=== PATIENT | female | born 1960 | race Caucasian/White ===

== ENCOUNTER 2022-09-26 10:08 | Inpatient (IN) | payer OTHER, MEDICAID, SELFPAY ==
[2022-09-26] VITALS (18 sets, daily range): BP systolic 124–171; BP diastolic 39–97; PULSE 64–95; RESP 13–28; TEMP 36.2–36.9; O2SAT 95–100; BMI 26.6
--- NOTE | 2022-09-26 10:11 | DI.CT.S_ITS ---
PROCEDURE: CT ANGIO HEAD AND NECK INDICATIONS: L side weakness TECHNIQUE: After the administration of intravenous contrast, 1 mm thick sections acquired from the aortic arch through the [place] of [place]. Post-contrast 4.5 mm thick sections then re-acquired from the foramen magnum to the vertex. 3-dimensional npiboja-uiwbijbjx-zsprkcknuv (MIP) and/or volume rendering reformats were acquired of the central intracranial vasculature and neck separately. For radiation dose reduction, the following was used: automated exposure control, adjustment of mA and/or kV according to patient size. COMPARISON: [facility], CT, CT HEAD/BRAIN WO CON, 09/26/2022, 11:29.. FINDINGS: Image quality: Excellent. BRAIN: CSF spaces: Ventricles are normal in size and shape. Basal cisterns are patent. No extra-axial fluid collections. Brain: No midline shift. No intracranial bleeds or masses. Messer-white matter interface appears intact. Skull and face: Calvarium and facial bones appear intact, without suspicious lesions. Orbits appear normal. Sinuses: Complete opacification of the left maxillary sinus. Right maxillary sinus mucous retention cyst and minimal mucosal thickening. HEAD CT ANGIOGRAPHY: Anterior circulation: Intracranial internal carotid arteries are normal in size and flow. The flow within the paired anterior cerebral arteries is normal and symmetric. The flow within the middle cerebral arteries is normal and symmetric. The anterior communicating artery is seen. No aneurysms are seen. Posterior circulation: Visualized portions of the vertebral arteries demonstrate normal caliber, and join to form a normal appearing basilar artery. Flow within the posterior cerebral arteries is normal and symmetric. No aneurysms are seen. NECK CT ANGIOGRAPHY: Carotid system: The great vessels demonstrate a bovine arch anatomy as they arise from the aortic arch. The origins of the common carotid arteries appear patent. The common carotid arteries demonstrate normal caliber and courses. The bifurcation regions are both widely patent. The internal carotid arteries demonstrate normal calibers and courses. Posterior circulation: The origins of the vertebral arteries both appear widely patent. The more superior extracranial portions of both vertebral arteries also demonstrate normal courses and calibers. They join to form a normal appearing basilar artery. Soft tissues: Visualized neck soft tissues demonstrate no suspicious abnormalities. Abfx-oa-lxetrrbv centrilobular emphysema. Bones: No suspicious bony lesions. Visualized cervical spine appears normally aligned. IMPRESSION: 1. Complete opacification of the left maxillary sinus. 2. No acute intracranial proces 3. Unremarkable CTA head. No stenosis, aneurysm, occlusion, or focal filling defect. 4. Widely patent carotids. 5. Moderate to severe centrilobular emphysema. Any quantitative measurements of stenosis were performed using NASCET criteria. Dictated by: Faisal Reese M.D. on 09/26/2022 at 12:03 Approved by: Faisal Reese M.D. on 09/26/2022 at 12:07
--- NOTE | 2022-09-26 10:11 | DI.CT.S_ITS ---
PROCEDURE: CT HEAD/BRAIN WO CON INDICATIONS: L side weakness TECHNIQUE: Noncontrast 4.5 mm thick angled axial sections acquired from the foramen magnum to the vertex, with coronal and sagittal reformats. For radiation dose reduction, the following was used: automated exposure control, adjustment of mA and/or kV according to patient size. COMPARISON: None. FINDINGS: Image quality: Excellent. CSF spaces: Basal cisterns are patent. No extra-axial fluid collections. The ventricles are symmetric in size and shape. Brain: No intracranial bleeds or masses. There is cerebral volume loss for age, with resultant ventricular and sulcal prominence. There are periventricular and deep white matter chronic small vessel ischemic changes. There is intracranial internal carotid artery atherosclerosis. Skull and face: Calvarium and visualized facial bones appear intact, without suspicious lesions. Sinuses: Visualized sinuses and mastoids are clear. IMPRESSION: No evidence acute intracranial process. Dictated by: Faisal Reese M.D. on 09/26/2022 at 12:01 Approved by: Faisal Reese M.D. on 09/26/2022 at 12:02
--- NOTE | 2022-09-26 10:35 | ED_ITS ---
HPI - Neuro Symptoms/Deficit General Chief Complaint: Neuro Symptoms/Deficit Stated Complaint: left side doesn't work,started last night Time Seen by Provider: 09/26/22 10:10 Source: patient, family and other Mode of arrival: Wheelchair History of Present Illness HPI Narrative: Patient is a 62-year-old female. A known history of alcohol abuse. Has been drinking this morning. Is here with family for evaluation of left-sided weakness. Per the patient's report her left side started to get weak last evening but she could not get any more specific than this. Per family at bedside the patient has been falling quite a bit over the past 6 months and has had a worsening of her generalized weakness but they have been attributing this to her heavy alcohol use. Patient states she did not fall last evening. She reports no pain. No headache. No vision changes. She does state that she is weak on her left side. He denies any fevers. No abdominal pain or nausea vomiting. Has not tried anything for the symptoms prior to arrival. Patient is not on anticoagulation. On Anticoagulants: No Related Data Home Medications Medication Instructions Recorded Confirmed No Known Home Medications 09/26/22 09/26/22 Allergies Allergy/AdvReac Type Severity Reaction Status Date / Time Penicillins Allergy Unknown Verified 09/26/22 10:18 Review of Systems Review of Systems ROS Unobtainable: All systems reviewed & are unremarkable except as noted in HPI and below Hematologic/Lymphatic On Anticoagulants: No Patient History Social History Smoking Status: Current every day smoker Smoking Status: Current every day smoker alcohol intake frequency: 3 or more drinks per day Alcohol type: hard liquor Substance Use Type: does not use Exam Initial Vital Signs Initial Vital Signs: Vital Signs Temperature 97.8 F 09/26/22 10:10 Pulse Rate 92 H 09/26/22 10:10 Respiratory Rate 18 09/26/22 10:10 Blood Pressure 167/93 H 09/26/22 10:10 Pulse Oximetry 97 09/26/22 10:10 Oxygen Delivery Method Room Air 09/26/22 10:10 Const General: cooperative, comfortable and No ill appearing HENMT Head: normal to inspection and normocephalic Face and sinus: normal facial exam Mouth: oral mucosae normal Eyes General: Yes appearance normal, both eyes and all related structures Resp Effort & Inspection: normal respiratory effort Auscultation: clear to auscultation bilaterally Cardio Rate: regular rate Rhythm: regular rhythm GI Inspection: normal to inspection and non-distended Skin General: no rashes or lesions noted Neuro General: patient alert, patient awake, patient oriented x3 and moves all extremities Cranial Nerves: CN's II-XI intact bilaterally Speech: speech normal Sensory Exam: no sensory deficits noted Extrem Other: Swelling to the left ankle and foot. This has been swollen for at least the past week. No discomfort. Scores GCS Trip coma scale eye opening: Spontaneous Gans coma scale verbal response: Orientated Trip coma scale motor response: Obey commands Trip coma scale total score: 15 NIH Stroke Scale Level of Conciousness: Alert, keenly responsive Ask month/age: Answers both questions correctly. Open/close eyes, close hand: Performs both tasks correctly Best gaze horizontal: Normal Visual daugherty: No visual loss Facial palsy: Normal symetrical movement Left arm drift: Some effort against gravity, cannot maintain, drifts down to bed Right arm drift: No drift for full 10 sec Left leg drift: Some effort against gravity, cannot maintain, drifts down to bed Right leg drift: Drifts down, not to bed Limb ataxia: Present in two limbs Sensory on face/arms/legs: Normal, no sensory loss Best language: No aphasia, normal Dysarthria: Normal Extinction or inattention: No abnormality Total NIH Stroke scale score: 7 Course Orders Ordered: ED Orders 09/26/22 10:11 CT angio head and neck Stat CT head/brain wo con Stat EKG-12 Lead Stat 09/26/22 10:40 Comprehensive Metabolic Panel Stat Ethanol (ETOH) Stat Lipase Stat PTT Partial Thromboplastin Bradley Stat Prothrombin Time INR Stat Troponin & CK Cardiac Panel Stat 09/26/22 11:15 Complete Blood Count AUTO DIFF Stat 09/26/22 11:52 Urine Culture Stat Urine Microscopic Stat Discontinued Medications Thiamine HCl 200 mg/ Sodium (Chloride) 102 mls @ 408 mls/hr IV NOW ONE Stop: 09/26/22 10:36 Vital Signs Vital signs: Vital Signs - 8 hr 09/26/22 10:10 09/26/22 10:19 09/26/22 10:30 Temperature 97.8 F Pulse Rate 92 H 78 86 Respiratory Rate 18 22 24 Blood Pressure 167/93 H Pulse Oximetry 97 100 100 Oxygen Delivery Method Room Air 09/26/22 11:00 09/26/22 11:39 09/26/22 11:40 Temperature Pulse Rate 80 78 Respiratory Rate 20 Blood Pressure 152/86 H Pulse Oximetry 99 99 Oxygen Delivery Method 09/26/22 11:40 Temperature Pulse Rate 83 Respiratory Rate 22 Blood Pressure Pulse Oximetry 99 Oxygen Delivery Method Room Air MDM - Neuro Symptoms/Deficit Lab Data Attestation: I reviewed the patient's lab results. 09/26/22 11:15 09/26/22 10:40 Labs: Lab Results 09/26/22 09/26/22 09/26/22 Range/Units 10:40 10:40 10:40 WBC (4.5-11.0) X10^3/uL RBC (4.0-5.2) X10^6/uL Hgb (12.0-16.0) g/dL Hct (36-46) % MCV (80-100) fL MCH (26-34) PG MCHC (30-36) % RDW (11.6-14.8) % Plt Count (150-400) X10^3/uL Neut % (Auto) (50-75) % Lymph % (Auto) (25-40) % Emery % (Auto) (3-14) % Eos % (Auto) (2-4) % Baso % (Auto) (0-2) % Neut # (Auto) (3837-5278) /uL Lymph # (Auto) (1470-6991) /uL Emery # (Auto) (0-900) /uL Eos # (Auto) (0-450) /uL Baso # (Auto) (0-100) /uL RBC Morphology Anisocytosis Macrocytosis Target Cells PT 10.0 L (10.1-12.7) SECONDS INR 0.9 (0.9-1.3) APTT 20 L (26-36) SECONDS Sodium 140 (137-145) mmol/L Potassium 3.2 L (3.4-5.1) mmol/L Chloride 101 (98-107) mmol/L Carbon Dioxide 29 (22-32) mmol/L BUN 3 L (7-17) mg/dL Creatinine 0.38 L (0.52-1.04) mg/dL Estimated GFR > 60 (>60) mL/min BUN/Creatinine Ratio 7.9 (6-22) Glucose 86 (80-110) mg/dL Calcium 8.5 (8.4-10.2) mg/dL Total Bilirubin 0.5 (0.2-1.3) mg/dL AST 85 H (14-36) IU/L ALT 32 (<35) IU/L Alkaline Phosphatase 113 (38-126) U/L Total Creatine Kinase 87 (30-135) U/L CK-MB (CK-2) TNP CK-MB (CK-2) Rel Index TNP Troponin I < 0.012 (0.01-0.034) ng/mL Total Protein 7.9 (6.3-8.2) g/dL Albumin 4.3 (3.5-5.0) g/dL Globulin 3.6 (1.7-4.1) g/dL Albumin/Globulin Ratio 1.2 (1.0-2.8) Lipase 58 (23-300) U/L Urine RBC (0-5/HPF) Urine WBC (0-5/HPF) Ur Squamous Epith Cells (0-5/HPF) Urine Bacteria (None) Ur Culture Indicated? Ethyl Alcohol 163 H ( - 10) mg/dL 09/26/22 09/26/22 Range/Units 11:15 11:52 WBC 3.7 L (4.5-11.0) X10^3/uL RBC 2.71 L (4.0-5.2) X10^6/uL Hgb 11.1 L (12.0-16.0) g/dL Hct 31.6 L (36-46) % MCV 116.8 H (80-100) fL MCH 41.0 H (26-34) PG MCHC 35.1 (30-36) % RDW 15.3 H (11.6-14.8) % Plt Count 182 (150-400) X10^3/uL Neut % (Auto) 51.1 (50-75) % Lymph % (Auto) 37.0 (25-40) % Emery % (Auto) 11.4 (3-14) % Eos % (Auto) 0.2 L (2-4) % Baso % (Auto) 0.3 (0-2) % Neut # (Auto) 1900 (5741-0988) /uL Lymph # (Auto) 1400 (4275-5045) /uL Emery # (Auto) 400 (0-900) /uL Eos # (Auto) 0 (0-450) /uL Baso # (Auto) 0 (0-100) /uL RBC Morphology See below Anisocytosis 1+ H Macrocytosis 2+ H Target Cells 1+ H PT (10.1-12.7) SECONDS INR (0.9-1.3) APTT (26-36) SECONDS Sodium (137-145) mmol/L Potassium (3.4-5.1) mmol/L Chloride (98-107) mmol/L Carbon Dioxide (22-32) mmol/L BUN (7-17) mg/dL Creatinine (0.52-1.04) mg/dL Estimated GFR (>60) mL/min BUN/Creatinine Ratio (6-22) Glucose (80-110) mg/dL Calcium (8.4-10.2) mg/dL Total Bilirubin (0.2-1.3) mg/dL AST (14-36) IU/L ALT (<35) IU/L Alkaline Phosphatase (38-126) U/L Total Creatine Kinase (30-135) U/L CK-MB (CK-2) CK-MB (CK-2) Rel Index Troponin I (0.01-0.034) ng/mL Total Protein (6.3-8.2) g/dL Albumin (3.5-5.0) g/dL Globulin (1.7-4.1) g/dL Albumin/Globulin Ratio (1.0-2.8) Lipase (23-300) U/L Urine RBC 0-1/hpf (0-5/HPF) Urine WBC 10-30/hpf H (0-5/HPF) Ur Squamous Epith Cells 1-5 /hpf (0-5/HPF) Urine Bacteria Moderate (10-30) H (None) Ur Culture Indicated? Specimen cultured Ethyl Alcohol ( - 10) mg/dL Urine Dip Bedside Urine Glucose Negative Bedside Urine Bilirubin - Negative Bedside Urine Ketone - Negative Urine Specific [place] 1.000 Bedside Urine Occult Blood - Negative Bedside Urine pH 6.0 Bedside Urine Protein - Negative Bedside Urine Urobilinogen - Negative Bedside Urine Nitrite + Positive Bedside Urine Leukocytes +/- [address] scan - head: Radiologist's Impression: PROCEDURE:? CT HEAD/BRAIN WO CON ? INDICATIONS:? L side weakness ? TECHNIQUE:? Noncontrast 4.5 mm thick angled axial sections acquired from the foramen magnum to the vertex, with coronal and sagittal reformats.? For radiation dose reduction, the following was used:? automated exposure control, adjustment of mA and/or kV according to patient size.? ? COMPARISON:? None. ? FINDINGS:? Image quality:? Excellent.? ? CSF spaces:? Basal cisterns are patent.? No extra-axial fluid collections.? The ventricles are symmetric in size and shape.? ? Brain:? No intracranial bleeds or masses.? There is cerebral volume loss for age, with resultant ventricular and sulcal prominence.? There are periventricular and deep white matter chronic small vessel ischemic changes.? There is intracranial internal carotid artery atherosclerosis.? ? Skull and face:? Calvarium and visualized facial bones appear intact, without suspicious lesions.? ? Sinuses:? Visualized sinuses and mastoids are clear.? ? IMPRESSION:? No evidence acute intracranial process. CTA - brain/neck: Radiologist's Impression: PROCEDURE:? CT ANGIO HEAD AND NECK ? INDICATIONS:? L side weakness ? TECHNIQUE:? After the administration of intravenous contrast, 1 mm thick sections acquired from the aortic arch through the [place] of [place].? Post-contrast 4.5 mm thick sections then re-acquired from the foramen magnum to the vertex.? 3-dimensional romiucu-ftmxghhjv-ecrrayrerg (MIP) and/or volume rendering reformats were acquired of the central intracranial vasculature and neck separately. For radiation dose reduction, the following was used:? automated exposure control, adjustment of mA and/or kV according to patient size.? ? COMPARISON:? [facility], CT, CT HEAD/BRAIN WO CON, 09/26/2022, 11:29.. ? FINDINGS:? Image quality:? Excellent.? ? BRAIN:? CSF spaces:? Ventricles are normal in size and shape.? Basal cisterns are patent.? No extra-axial fluid collections.? ? Brain:? No midline shift.? No intracranial bleeds or masses.? Messer-white matter interface appears intact.? ? Skull and face:? Calvarium and facial bones appear intact, without suspicious lesions.? Orbits appear normal.? ? Sinuses:? Complete opacification of the left maxillary sinus.? Right maxillary sinus mucous retention cyst and minimal mucosal thickening. ? HEAD CT ANGIOGRAPHY:? Anterior circulation:? Intracranial internal carotid arteries are normal in size and flow.? The flow within the paired anterior cerebral arteries is normal and symmetric.? The flow within the middle cerebral arteries is normal and symmetric.? The anterior communicating artery is seen.? No aneurysms are seen.? ? Posterior circulation:? Visualized portions of the vertebral arteries demonstrate normal caliber, and join to form a normal appearing basilar artery.? Flow within the posterior cerebral arteries is normal and symmetric.? No aneurysms are seen.? ? NECK CT ANGIOGRAPHY:? Carotid system:? The great vessels demonstrate a bovine arch anatomy as they arise from the aortic arch.? The origins of the common carotid arteries appear patent.? The common carotid arteries demonstrate normal caliber and courses.? The bifurcation regions are both widely patent.? The internal carotid arteries demonstrate normal calibers and courses.? ? Posterior circulation:? The origins of the vertebral arteries both appear widely patent.? The more superior extracranial portions of both vertebral arteries also demonstrate normal courses and calibers.? They join to form a normal appearing basilar artery.? ? Soft tissues:? Visualized neck soft tissues demonstrate no suspicious abnormalities.? Rkxj-gv-yeavhvtx centrilobular emphysema.? ? Bones:? No suspicious bony lesions.? Visualized cervical spine appears normally aligned.? IMPRESSION:? ? 1. Complete opacification of the left maxillary sinus. ? 2. No acute intracranial proces ? 3. Unremarkable CTA head.? No stenosis, aneurysm, occlusion, or focal filling defect. ? 4. Widely patent carotids. ? 5. Moderate to severe centrilobular emphysema. ? Any quantitative measurements of stenosis were performed using NASCET criteria.? ECG Data Attestation: I personally reviewed and interpreted this ECG as follows: Interpretation: Sinus rhythm Ventricular rate 84 Normal axis Normal QRS QTC [address] T wave changes MDM Narrative Medical decision making narrative: Patient not a candidate for tPA. We are unknown when her last known normal was but patient states that her symptoms started last evening. There was no large vessel occlusion nor intracranial hemorrhage noted on the CT scans. Patient is intoxicated. Patient does have a fairly heavy alcohol use. She is an NIH score of 7. Has left-sided arm and leg weakness. Can not perform coordination test with the side. Despite her level of intoxication she is alert oriented x3. Patient also has a nitrite positive urine but has no UTI symptoms. Has not febrile. No leukocytosis. Given her presentation I did recommend admission to the hospital for further evaluation of her presenting symptoms. I did discuss the case with Dr. Thomas hospitalist. We will admit for further evaluation and treatment. I also discussed the need for admission with the patient. She expressed understanding and agreement as well. Discharge Plan Departure Patient Disposition: Admitted As Inpatient Clinical Impression: Alcohol intoxication, Cerebrovascular accident
[2022-09-26 11:05] LABS: INR 0.9 (0.9-1.3)
[2022-09-26 11:08] LABS: PTT Partial Thromboplastin Tim 20 SECONDS (26-36)
[2022-09-26 11:12] LABS: Alanine Aminotransferase 32 IU/L (<35); Albumin 4.3 g/dL (3.5-5.0); Albumin Globulin Ratio 1.2 (1.0-2.8); Alkaline Phosphatase 113 U/L (38-126); Aspartate Aminotransferase 85 IU/L (14-36); BUN Creatinine Ratio 7.9 (6-22); Bilirubin Total 0.5 mg/dL (0.2-1.3); Blood Urea Nitrogen 3 mg/dL (7-17); Calcium 8.5 mg/dL (8.4-10.2); Carbon Dioxide 29 mmol/L (22-32); Chloride 101 mmol/L (98-107); Creatine Kinase 87 U/L (30-135); Estimated Glomerular Filt Rate > 60 mL/min (>60); Ethanol (ETOH) 163 mg/dL; Globulin 3.6 g/dL (1.7-4.1); Glucose 86 mg/dL (80-110); HEMOLYSIS < 15 (0-50); Lipase 58 U/L (23-300); Potassium 3.2 mmol/L (3.4-5.1); Sodium 140 mmol/L (137-145); Total Protein 7.9 g/dL (6.3-8.2)
[2022-09-26 11:24] LABS: Add Manual Diff / Slide Review NO; Basophils Absolute Auto 0 /uL (0-100); Basophils Percent Auto 0.3 % (0-2); Eosinophils Absolute Auto 0 /uL (0-450); Eosinophils Percent Auto 0.2 % (2-4); Hematocrit 31.6 % (36-46); Hemoglobin 11.1 g/dL (12.0-16.0); Lymphocytes Absolute Auto 1400 /uL (1100-4500); Mean Corpuscular HGB Conc 35.1 % (30-36); Mean Corpuscular Volume 116.8 fL (80-100); Monocytes Absolute Auto 400 /uL (0-900); Monocytes Percent Auto 11.4 % (3-14); Neutrophils Absolute Auto 1900 /uL (1500-7000); Neutrophils Percent Auto 51.1 % (50-75); Platelet Count 182 X10^3/uL (150-400); Red Blood Cell Count 2.71 X10^6/uL (4.0-5.2); Red Cell Distribution Width 15.3 % (11.6-14.8); White Blood Cell Count 3.7 X10^3/uL (4.5-11.0)
[2022-09-26 11:25] LABS: Troponin I < 0.012 ng/mL (0.01-0.034)
--- NOTE | 2022-09-26 11:48 | PC.NURSE ---
Pt c/o left-sided weakness since approximately 1999 last night. States she was normal at work until she left at approximately 1930, then symptoms began. Pt has severe drift of left upper extremity with apparent contracture, severe drift of left leg, and ataxia in both limbs. Pt's speech is slurred. ETOH positive. Denies pain.
[2022-09-26 11:49] LABS: Anisocytosis 1+; Macrocytosis 2+; Target Cells 1+
[2022-09-26 12:16] LABS: Bacteria Urine Moderate (10-30); Culture Indicated Urine Specimen Cultured; RBC Urine 0-1/HPF (0-5/HPF); Squamous Epithelial Cell Urine 1-5 /HPF (0-5/HPF); WBC Urine 10-30/HPF (0-5/HPF)
--- NOTE | 2022-09-26 13:41 | DI.MRI.S_ITS ---
PROCEDURE: MR HEAD/BRAIN WO CON INDICATIONS: CVA TECHNIQUE: Non-contrast axial T1 spin echo, axial T2 fast spin echo, sagittal and axial FLAIR, coronal T2 fast spin echo, axial gradient echo, axial diffusion and ADC through the brain. COMPARISON: None. FINDINGS: Image quality: Degraded by motion artifact CSF spaces: Ventricles appear symmetric in size and shape. Basal cisterns are patent. No extra-axial fluid collections. Brain: No intracranial bleeds or mass effects. There is cerebral volume loss for age. There are periventricular and deep white matter chronic small vessel ischemic changes. Brainstem appears normal. Diffusion-weighted images demonstrate a 10 mm focus of elevated signal intensity within the right posterior orta radiata which demonstrates moderate FLAIR signal elevation, as well as low ADC map signal. No chronic ischemic insults. Normal intravascular flow voids are present. Skull and face: Calvarial bone marrow is normal in signal. Orbits are normal. Sinuses: Sinuses and mastoids are clear. IMPRESSION: 1. Small subacute right orta radiata infarct. 2. Volume loss and small vessel ischemic disease. Dictated by: Carolina Stoner M.D. on 09/26/2022 at 18:31 Approved by: Carolina Stoner M.D. on 09/26/2022 at 18:33
--- NOTE | 2022-09-26 13:41 | DI.ECHO.S_ITS ---
[facility]---------+ [facility] +---------+ : : [address] : : : : [id number] : : : : Phone: [phone]+ Echocardiogram Report + + :Name: NERIS PHILLIP Study Date: 09/27/2022 Height: 64 in : :[facility] ReadingLocation: Weight: 155 lb : : Gender: Female BSA: 1.8 m2 : :: 1960 Age: 62 yrs BP: 149/87 mmHg: :Reason For Study: CVA : :Ordering Physician: RENETTA, : :SUSI Performed By: Lindsey Dhillon : :Referring: SUSI JACKSON : + + Interpretation Summary Normal sinus rhythm. Normal LV size and wall thickness. Normal wall motion and LV systolic function. Ejection fraction is 60-65%. Stage I diastolic dysfunction. Normal chamber sizes. No significant valvular abnormalities. No source of embolism found. Procedure: A two-dimensional transthoracic echocardiogram with color flow and Doppler was performed. The study quality was technically adequate. There is no prior echocardiogram noted for this patient. A saline contrast injection was performed to assess for cardiac shunting. The injection was performed through an intravenous line in the left arm. The patient was in sinus rhythm with heart rates between 65-92 bpm during the exam. Left Ventricle: The left ventricle is normal in size and wall thickness. A false chord is noted (normal variant). The ejection fraction is estimated to be 60-65%. Diastolic parameters suggest probable normal left ventricular diastolic function and normal filling pressures. Right Ventricle: The right ventricle is normal size. Right ventricular systolic function is borderline reduced. Atria: The left atrial size is normal. Right atrial size is normal. There is no Doppler evidence for an interatrial shunt. Injection of contrast documented no interatrial shunt. Mitral Valve: The mitral valve is normal in structure and function. There is mild mitral regurgitation. Aortic Valve: The aortic valve is trileaflet. The aortic valve opens well. There is no aortic valve stenosis. No aortic regurgitation is present. Tricuspid Valve: The tricuspid valve is normal in structure and function. There is mild tricuspid regurgitation. Pulmonic Valve: The pulmonic valve is not well visualized. There is no pulmonic valvular regurgitation. Great Vessels: The aortic root is normal size. The dimensions of the ascending aorta are normal. The IVC is of normal diameter and collapses greater than 50% with a sniff. This suggests a low right atrial pressure of 3 mm Hg. Pericardium/ Pleura There is no pericardial effusion. There is no pleural effusion. MMode/2D Measurements & Calculations LVIDd: 4.3 cm LVOT diam: 2.0 cm LVIDs: 3.0 cm Ao root diam: 3.0 cm FS: 31.1 % asc Aorta Diam: 3.3 cm IVSd: 0.75 cm LVPWd: 0.88 cm LV dobbins. diameter/BSA (cm/m^2): 2.5 LV sys. diameter/BSA (cm/m^2): 1.7 LA A2 area: 17.6 cm2 RA long axis: 4.0 cm LA A4 area: 12.1 cm2 RA area: 9.8 cm2 LA length (vol): 4.2 cm RA vol: 20.4 ml LA vol: 43.3 ml RA : 11.6 ml/m2 LA vol index: 24.7 ml/m2 IVC diam: 1.5 cm RVD1 (basal): 3.0 cm RVD2 (mid): 2.5 cm TAPSE: 1.6 cm Doppler Measurements & Calculations Ao V2 max: 110.8 cm/sec LVOT Max Armando: 87.4 cm/sec Ao V2 mean: 80.0 cm/sec LV V1 max P.1 mmHg Ao max P.9 mmHg LV V1 VTI: 16.8 cm Ao mean P.8 mmHg DONALD(I,D): 2.7 cm2 Ao V2 VTI: 19.5 cm DONALD(V,D): 2.5 cm2 sev ratio: 0.86 DONALD indexed to BSA (cm^2/m^2): 1.6 MV E max armando: 68.7 cm/sec PA V2 max: 96.1 cm/sec MV A max armando: 74.0 cm/sec PA V2 mean: 66.7 cm/sec MV E/A: 0.93 PA mean P.0 mmHg Med Peak E' Armando: 7.9 cm/sec PA pr(Accel): 39.6 mmHg E/E' med: 8.7 Lat Peak E' Armando: 6.8 cm/sec E/E' lat: 10.1 E/e' average: 9.4 MV dec time: 0.21 sec SV(LVOT): 53.1 ml Electronically signed by: Tari Reina M.D. on Reading Physician:09/27/2022 02:49 PM
--- NOTE | 2022-09-26 13:42 | DI.RAD.S_ITS ---
PROCEDURE: XR CHEST 1V INDICATIONS: CVA TECHNIQUE: One view of the chest was acquired. COMPARISON: None. FINDINGS: Surgical changes and devices: None. Lungs and pleura: Lungs are clear. No pleural effusions or pneumothorax. Mediastinum: Mediastinal contours appear normal. Heart size is normal. Bones and chest wall: No suspicious bony lesions. Overlying soft tissues appear unremarkable. IMPRESSION: No acute cardiopulmonary process. Dictated by: Gagan Boothe M.D. on 09/26/2022 at 14:37 Approved by: Gagan Boothe M.D. on 09/26/2022 at 14:37
--- NOTE | 2022-09-26 13:48 | P.HP_ITS ---
History of Present Illness History of Present Illness Date Patient Seen: 09/26/22 Time Patient Seen: 13:15 Chief complaint: left side doesn't work,started last night Narrative: Pt is 62 yo female with alcohol dependency, frequent falls presents with c/o left side weakness since yesterday evening. Pt states she was sitting at dining table and noticed sudden onset of left side weakness. However, she decided not to seek medical attention and instead somehow got herself to bed. Following morning her friend checked in on her, was alarmed, and brought her to ED (pt wouldn't allow friend to call 911). On arrival pt noted to have left hemiparesis, NIH 7. Her head CT was negative except left maxillary opacification, CTA was normal. EKG NSR, poss old septal CA. Pt denies facial droop and speech difficulty. Her blood alcohol level was 163. Her friend states pt's last drink was this morning. Pt states she a couple of drinks a day and has never been in withdrawal. Also states she smokes 1/2 ppd. Not on any meds. Friend also states that pt has been weak and falling a lot over the past 6 months which they've attributed to alcohol intake. By the time I saw pt in ED her left side weakness was much improved from earlier this morning. [facility] Medical History (Updated 09/26/22 @ 13:54 by Ted Thomas MD) Alcohol dependence Social History Smoking Status: Current every day smoker Meds Home Medications and Allergies Home Medications Medication Instructions Recorded Confirmed Type No Known Home Medications 09/26/22 09/26/22 History Allergies Allergy/AdvReac Type Severity Reaction Status Date / Time Penicillins Allergy Unknown Verified 09/26/22 10:18 Exam Vital Signs (past 8 hours): - 09/26/22 10:10 09/26/22 10:19 09/26/22 10:30 Temperature 97.8 F Pulse Rate 92 H 78 86 Respiratory Rate 18 22 24 Blood Pressure 167/93 H Pulse Oximetry 97 100 100 Oxygen Delivery Method Room Air 09/26/22 11:00 09/26/22 11:39 09/26/22 11:40 Temperature Pulse Rate 80 78 Respiratory Rate 20 Blood Pressure 152/86 H Pulse Oximetry 99 99 Oxygen Delivery Method 06/26/23 11:40 Temperature Pulse Rate 83 Respiratory Rate 22 Blood Pressure Pulse Oximetry 99 Oxygen Delivery Method Room Air Oxygen Delivery Method Room Air Narrative Exam Narrative: Gen: alert, cooperative, NAD HEENT: NC?AT, face symmetric, PERRLA, EOMI Neck: no enlarged LN Lungs: clear CV: nl S1S2, RRR, no murmur Abd: soft, nt, no palp liver/spleen edge Ext: no edema Neuro: affect nl, speech nl w/o aphasia, strength RUE 5/5, LUE 4/5, RLE 5/5, LLE 3/5; heel to marion nl bilat, sens nl Objective Labs 09/26/22 11:15 09/26/22 10:40 Labs: Laboratory Results - last 24 hr 09/26/22 09/26/22 09/26/22 10:40 10:40 10:40 WBC RBC Hgb Hct MCV MCH MCHC RDW Plt Count Neut % (Auto) Lymph % (Auto) [place] % (Auto) Eos % (Auto) Baso % (Auto) Neut # (Auto) Lymph # (Auto) [place] # (Auto) Eos # (Auto) Baso # (Auto) RBC Morphology Anisocytosis Macrocytosis Target Cells PT 10.0 L INR 0.9 APTT 20 L Sodium 140 Potassium 3.2 L Chloride 101 Carbon Dioxide 29 BUN 3 L Creatinine 0.38 L Estimated GFR > 60 BUN/Creatinine Ratio 7.9 Glucose 86 Calcium 8.5 Total Bilirubin 0.5 AST 85 H ALT 32 Alkaline Phosphatase 113 Total Creatine Kinase 87 CK-MB (CK-2) TNP CK-MB (CK-2) Rel Index TNP Troponin I < 0.012 Total Protein 7.9 Albumin 4.3 Globulin 3.6 Albumin/Globulin Ratio 1.2 Lipase 58 Urine RBC Urine WBC Ur Squamous Epith Cells Urine Bacteria Ur Culture Indicated? Ethyl Alcohol 163 H 09/26/22 09/26/22 11:15 11:52 WBC 3.7 L RBC 2.71 L Hgb 11.1 L Hct 31.6 L MCV 116.8 H MCH 41.0 H MCHC 35.1 RDW 15.3 H Plt Count 182 Neut % (Auto) 51.1 Lymph % (Auto) 37.0 [place] % (Auto) 11.4 Eos % (Auto) 0.2 L Baso % (Auto) 0.3 Neut # (Auto) 1900 Lymph # (Auto) 1400 [place] # (Auto) 400 Eos # (Auto) 0 Baso # (Auto) 0 RBC Morphology See below Anisocytosis 1+ H Macrocytosis 2+ H Target Cells 1+ H PT INR APTT Sodium Potassium Chloride Carbon Dioxide BUN Creatinine Estimated GFR BUN/Creatinine Ratio Glucose Calcium Total Bilirubin AST ALT Alkaline Phosphatase Total Creatine Kinase CK-MB (CK-2) CK-MB (CK-2) Rel Index Troponin I Total Protein Albumin Globulin Albumin/Globulin Ratio Lipase Urine RBC 0-1/hpf Urine WBC 10-30/hpf H Ur Squamous Epith Cells 1-5 /hpf Urine Bacteria Moderate (10-30) H Ur Culture Indicated? Specimen cultured Ethyl Alcohol Assessment & Plan Assessment & Plan narrative: 1. Acute CVA with left hemiparesis -pt presents outside of TPA window -head CT, CTA unremarkable except left sinus opacification -risk factors: EtOH, smoking -obtain brain MRI -ECHO -telemetry -allow permissive hypertension -check lipids -ASA 325 mg x 1, then 81 mg daily -Plavix 75 mg daily x 21 days for dual anti-platelet therapy -atorvastatin 80 mg HS -consult PT, OT - note frequent falls at home -heart healthy diet 2. Alcohol dependency and intoxication -EtOH level at 11 am 163 -CIWA protocol with lorazepam -thiamine, MVI qd -enc to quit drinking and seek help for alcohol dependency 3. Cigarette nicotine dependency -enc to quit smoking -nicotine 21 mg patch prn 4. Leukopenia, macrocytic anemia -likely EtOH related -check ferritin, iron profile, B12 Code status: Full DVT prevention: enoxaprin
[2022-09-26] MEDS: SODIUM CHLORIDE 0.45% 1,000 ML 100 ML IV (14:14)
[2022-09-26] MEDS: THIAMINE 200 MG in SODIUM CHLORIDE 0.9% 100 ML 408 MG IV (14:14)
[2022-09-26 14:29] LABS: HEMOLYSIS 19 (0-50); Iron 113 ug/dL (37-170)
[2022-09-26 14:30] LABS: Cholesterol 193 mg/dL (140-199); Triglycerides 68 mg/dL (35-150)
[2022-09-26 14:39] LABS: Percent Iron Saturation 43 % (15-50); Total Iron Binding Capacity 262 ug/dL (265-497)
[2022-09-26 14:43] LABS: Transferrin 214 mg/dL (206-381)
[2022-09-26 14:47] LABS: HDL Cholesterol 169 mg/dL (40-60); LDL Cholesterol Calculated 10 mg/dL (<100)
[2022-09-26] MEDS: ASPIRIN EC 325 MG TABLET PO (14:47)
[2022-09-26 15:05] LABS: Ferritin 340 ng/mL (11-264)
[2022-09-26 15:19] LABS: Vitamin B12 > 1000 pg/mL (239-931)
[2022-09-26] MEDS: LORazepam 2 MG/ML INJ 1 MG IV (17:16)
--- NOTE | 2022-09-26 17:56 | PC.NURSE ---
Patient premedicated with IV lorazepam for clostrophobia per one time order. Patient picked up for MRI test.
[2022-09-26] MEDS: ATORVASTATIN 20 MG TABLET 80 MG PO (20:09)
[2022-09-27] VITALS (7 sets, daily range): BP systolic 136–165; BP diastolic 87–97; PULSE 68–100; RESP 16–18; TEMP 36.1–37.4; O2SAT 94–98
[2022-09-27] MEDS: SODIUM CHLORIDE 0.45% 1,000 ML 100 ML IV (01:30)
[2022-09-27] MEDS: CLOPIDOGREL 75 MG TABLET PO (08:46)
[2022-09-27] MEDS: ASPIRIN EC 81 MG TABLET PO (08:46)
[2022-09-27] MEDS: THIAMINE 100 MG TABLET PO (08:46)
[2022-09-27] MEDS: MULTIVITAMIN 1 TABLET 1 TAB PO (08:47)
[2022-09-27] MEDS: ENOXAPARIN 40 MG/0.4 ML SYRINGE SUBCUT (08:47)
--- NOTE | 2022-09-27 11:00 | PT.IIE ---
Current Diagnoses Cerebral infarction, unspecified (09/26/22) Medical History (Last Updated 09/26/22 @ 13:54 by Ted Thomas MD) Alcohol dependence Physical Therapy Inpatient Evaluation/Re-Eval M1 PT/OT-IP Prior Functional Status Start: 09/27/22 12:10 Freq: NEEDED Status: Active Protocol: Document 09/27/22 11:00 AB (Rec: 09/27/22 12:28 AB [id number]) Medical Review Prior Functional Status Medical History Reviewed Yes Communication able to make needs known Mobility and Gait Pt stated that she is modified independent with all mobilities and ambulation without AD but with h/o falls. stated that last fall was last monday and had more than 2 fall this year(pt cannot recall how many times) Social History Household Members none Living Arrangements House Number of Floors (Floors) One Floor Number of Stairs To Enter/Railing? 2 steps B rails to enter from the garage Home Environment Standard Height Toilet,Tub/ Shower Home Equipment Shower Seat with Backrest,Hand Held Shower,Grab Bars In Shower Additional Social History Comment pt stated that her friends will be able to stay and assist her if needed M2 PT-IP Current Condition Start: 09/27/22 12:10 Freq: NEEDED Status: Active Protocol: Document 09/27/22 11:00 AB (Rec: 09/27/22 12:28 AB [id number]) Physical Therapy Current Condition Current Condition Evaluation Date 09/27/22 Treatment Diagnosis R CVA L sided weakness; difficulty in walking Onset Date 09/26/22 M3 PT-IP Subjective Start: 09/27/22 12:10 Freq: NEEDED Status: Active Protocol: Document 09/27/22 11:00 AB (Rec: 09/27/22 12:28 AB [id number]) Subjective Physical Therapy Visit Type Type Initial Evaluation Visit Start Time 11:00 Visit Stop Time 11:37 Total Visit Minutes 37 Number of RESTAURANT HOSTESS Visits 0 Physical Therapy Visit Comments Patient Comments pt is agreeable to do PT Therapy Pain Assessment Pain Present Pain Present Denied Pain M4 PT-IP Mobility and Gait Start: 09/27/22 12:10 Freq: NEEDED Status: Active Protocol: Document 09/27/22 11:00 AB (Rec: 09/27/22 12:28 AB [id number]) PT-Bed Mobility Assessment Supine to Sit Supine to Sit Maximum Assistance Scooting Scooting to Edge of Bed Maximum Assistance PT-Transfer Assessment Sit to and From Stand Sit to and from Stand Maximum Assistance,2 Person Assistance,Use of Upper Extremities Equipment Transfer Assistive Device Gait Belt,Front Wheeled Walker Orthotic/Prosthetic Devices or Brace: No Transfers Transfer Destination Chair,Wheelchair Transfer Technique Stand Step Pivot Transfer Ability Level of Assist Maximum Assistance,Total Assistance,2 Person Assistance ,Use of Upper Extremities Comments Mobility Comments Pt in bed and agreed to do PT. pt's friend in room with pt. BP in supine: 165/96. completed supine to sit max A and max cues. sat on EOB mod A for sitting balance. LOB x 3 posteriorly and to the L. pt unable to reposition and is unable to her body position. also noted L sided neglect. max A for scooting to EOB. educated pt on trunk control and increase COG awareness but pt unable to correct body position without assistance. completed sit to stand max A x 2 and max cues. pt can be impulsive. increase posterior with L sided trunk leaning and L knee buckling noted. pt instructed to sit back on EOB. pt educated on use of fWW for support and for LLE stability. completed sit to stand again max A x 2 and max cues. step transfer to chair using FWW max A x 2 and max cues but needing total A x 2 midway transfers due to LLE unsteadiness and unable to move. positioned pt on the chair. call light and table placed within reach. informed pt regarding d/c recommendation of SNF but pt stated to give her a few days and she will be fine. informed pt regarding safe d/c plan. Gait Assessment Comments Gait Comments unable at this time PT-Balance Assessment Sitting Balance and Reactions Static Sitting Balance Ability Fair Dynamic Sitting Balance Ability Poor Standing Balance and Reactions Static Standing Balance Ability Poor Dynamic Standing Balance Ability Poor Device Used FWW M5 PT-IP Objective Assessments Start: 09/27/22 12:10 Freq: NEEDED Status: Active Protocol: Document 09/27/22 11:00 AB (Rec: 09/27/22 12:28 AB [id number]) Orientation Orientation/Cognition Level of Alertness Alert Orientation Name Safety Awareness Decreased Safety Awareness Memory Description Short Term Impaired Gross Range of Motion Lower Extremity ROM Assessment Within Functional Limits Strength Lower Extremity Strength Assessment Left Impaired Knee 3+/5 Ankle 3+/5 Coordination Assessment Gross Coordination Gross Coordination Impaired M6 PT-IP Treatment Start: 09/27/22 12:10 Freq: NEEDED Status: Active Protocol: Document 09/27/22 11:00 AB (Rec: 09/27/22 12:28 AB [id number]) Physical Therapy Treatment Education Education Provided Safety M7 PT-IP Assessment and Plan Start: 09/27/22 12:10 Freq: NEEDED Status: Active Protocol: Document 09/27/22 11:00 AB (Rec: 09/27/22 12:28 AB [id number]) PT Summary Assessment and Plan Potential Rehabilitation Potential Fair Status of Condition at Evaluation Evolving Summary Assessment Summary pt admitted for R CVA L sided weakness. pt presents with decrease trunk control and L sided weakness with L knee buckling during transfers and is impulsive. pt requiring max A with bed mobility and max A x 2 to total A x 2 for transfers using FWW. Recommending kenny lift transfers with nursing staff at this time. pt will require SNF rehab to improve mobility . Goals Bed Mobility Goal Minimal Assistance Transfer Goal Minimal Assistance,Front Wheeled Walker Gait Goal Minimal Assistance,Front Wheel Walker Gait Distance 25 Other Goals improve bed mobility, transfers using FWW and ambulation using FWW SBA 100 ft up/down 2 steps B rail CGA Days to Meet Goals 10 Frequency of Treatment Frequency Of Treatment Once a Day Treatment Plan Physical Therapy Treatment Plan Bed Mobility Training,Transfer Training,Gait Training, Therapeutic Exercise,Balance Retraining,Discharge Planning, Hot or Cold Pack,Neuromuscular Re-ed,Coordination Retraining ,Manual Therapy Precautions Other Precautions falls Recommendations To Nursing Amount of Assist Needed Mechanical Lift Discharge Recommendations PT Discharge Recommendations SNF Rehab Transportation Needs at Discharge Wheelchair/Cabulance
[2022-09-27] MEDS: LORazepam 1 MG TABLET PO (11:56)
--- NOTE | 2022-09-27 12:11 | PM.PN.1 ---
Subjective Subjective Date Patient Seen: 09/27/22 Interval history: 62 yo female with alcohol dependency, frequent falls presented with c/o left side weakness. MRO showed subacute right side orta radiata stroke. Echo pending. Pt remains weak on left. Tele showed brief run of what looks like SVT rather than afib. Exam Vital Signs (past 8 hours): - 09/27/22 08:00 Temperature 99.4 F Pulse Rate 96 H Respiratory Rate 18 Blood Pressure 158/89 H Pulse Oximetry 95 Oxygen Flow Rate 0 Oxygen Delivery Method Room Air Oxygen Flow Rate 0 Narrative Exam Narrative: Gen: alert, sitting in chair Heart: regular rhythm Ext: no edema Neuro: nl affect and speech, LUE 3/5, LLE 3/5 Objective Labs 09/26/22 11:15 09/26/22 10:40 Labs: Laboratory Results - last 24 hr 09/26/22 09/26/22 09/26/22 10:48 10:48 10:48 Iron 113 TIBC 262 L % Saturation 43 Transferrin 214 Ferritin 340 H Triglycerides 68 Cholesterol 193 LDL Cholesterol, Calc 10 HDL Cholesterol 169 H Vitamin B12 > 1000 H Urine RBC Urine WBC Ur Squamous Epith Cells Urine Bacteria Ur Culture Indicated? 09/26/22 11:52 Iron TIBC % Saturation Transferrin Ferritin Triglycerides Cholesterol LDL Cholesterol, Calc HDL Cholesterol Vitamin B12 Urine RBC 0-1/hpf Urine WBC 10-30/hpf H Ur Squamous Epith Cells 1-5 /hpf Urine Bacteria Moderate (10-30) H Ur Culture Indicated? Specimen cultured [facility] Medical History (Updated 09/26/22 @ 13:54 by Ted Thomas MD) Alcohol dependence Social History household members: none Smoking Status: Current every day smoker alcohol intake: current Assessment & Plan Assessment & Plan narrative: 1. Acute CVA with left hemiparesis -pt presents outside of TPA window -head CT, CTA unremarkable except left sinus opacification -risk factors: EtOH, smoking -brain MRI: small subacute right orta radiata infarct, volume loss and small vessel ischemic disease.? -ECHO pending -telemetry: short run of SVT, cont monitoring r/o afib -allow permissive hypertension - consider starting anti-hypertensive on discharge -lipid panel: T 193, LDL 10 (ten), HDL 19, TG 68 -ASA 325 mg x 1, then 81 mg daily -Plavix 75 mg daily x 21 days for dual anti-platelet therapy -atorvastatin dose lowered to 40 mg daily in light of super low LDL -consult PT, OT - note frequent falls at home -heart healthy diet -SNF rehab 2. Alcohol dependency and intoxication -EtOH level at 11 am 163 -CIWA protocol with lorazepam -thiamine, MVI qd -enc to quit drinking and seek help for alcohol dependency -hasn't shown signs of withdrawal 3. Cigarette nicotine dependency -enc to quit smoking -nicotine 21 mg patch prn 4. Leukopenia, macrocytic anemia -likely EtOH related -check ferritin, iron profile, B12 - no evid of iron or B12 deficiency Code status: Full DVT prevention: enoxaprin Quality VTE Deep Vein Thrombosis/Pulmonary Embolism Present on Admission: No
--- NOTE | 2022-09-27 12:42 | OT.IP.EVAL ---
Current Diagnoses Cerebral infarction, unspecified (09/26/22) Past Medical History (Last Updated 09/26/22 @ 13:54 by Ted Thomas MD) Alcohol dependence Occupational Therapy Inpatient Evaluation/Re-Eval M1 PT/OT-IP Prior Functional Status Start: 09/27/22 12:49 Freq: NEEDED Status: Active Protocol: Document 09/27/22 12:15 [facility] (Rec: 09/27/22 13:09 [facility] [id number]) Medical Review Prior Functional Status Medical History Reviewed Yes Communication able to make needs known Mobility and Gait Pt stated that she is modified independent with all mobilities and ambulation without AD but with h/o falls. stated that last fall was last monday and had more than 2 fall this year(pt cannot recall how many times) Activities of Daily Living and IADL's Pt states was completely independent with her ADl and IADl needs. Social History Household Members none Living Arrangements House Number of Floors (Floors) One Floor Number of Stairs To Enter/Railing? 4 steps B rails to enter from the deck, pt usually gets in from the garage with 4 steps with left rail up. Home Environment Standard Height Toilet,Tub/ Shower Home Equipment Shower Seat with Backrest,Hand Held Shower,Grab Bars In Shower Additional Social History Comment pt stated that her friends will be able to stay and assist her if needed M2 OT-IP Current Condition Start: 09/27/22 12:49 Freq: Status: Active Protocol: Document 09/27/22 12:15 [facility] (Rec: 09/27/22 13:09 [facility] [id number]) Occupational Therapy Current Condition Current Condition Evaluation Date 09/27/22 Treatment Diagnosis CVA Diagnosis Onset Date 09/26/22 M3 OT- IP Subjective and Pain Start: 09/27/22 12:49 Freq: Status: Active Protocol: Document 09/27/22 12:15 [facility] (Rec: 09/27/22 13:09 [facility] [id number]) OT- Subjective Occupational Therapy Visit Type Type Initial Evaluation Visit Start Time 12:15 Visit Stop Time 12:42 Total Visit Minutes 17 Occupational Therapy Visit Comments Patient Comments Pt not wanting to get up but agreed to work with OT while in bed. Pt's roommate present in the room. Patient/Caregiver Goals TO go home. OT Pain Assessment Pain When Pain Assessed At Rest Pain Present Pain Present Denied Pain M4 OT- IP ADL's Start: 09/27/22 12:49 Freq: Status: Active Protocol: Document 09/27/22 12:15 [facility] (Rec: 09/27/22 13:09 [facility] [id number]) OT RYK-Mdjo-Vybjkgh General Evaluation Self-Feeding Ability Standby Assistance Areas Needing Assistance Cutting Food,Opening Containers Comments OT Self-Feeding Comments Pt needing assist for set-up. OT ADL-Grooming Comments OT Grooming Comments Not performed. OT ADL-Oral Care Comments Oral Care Comments Not performed. OT ADL-Dressing General Eval Lower Body Dressing Ability Maximum Assistance Comments OT Dressing Comments At this time due to decreased use of LUE and balance pt will needing extensive assist for LB dressing needs. OT ADL-Toileting Comments OT Toileting Comments Prior per nursing, pt needing two person assist for toileting needs. OT ADL-Bathing Comments OT Bathing Comments Sponge bath more appropriate at this time. M5 OT- IP IADL's Start: 09/27/22 12:49 Freq: Status: Active Protocol: Document 09/27/22 12:15 [facility] (Rec: 09/27/22 13:09 [facility] [id number]) OT-Instrumental Activities of Daily Living Home Safety Awareness Awareness of Need for Assistance at Home Decreased Awareness Ability to Problem Solve Emergency Able to Problem Solve Situations Home Safety Comments Pt able to answer general home safety questions correctly. M6 OT- IP Functional Cognition Start: 09/27/22 12:49 Freq: Status: Active Protocol: Document 09/27/22 12:15 [facility] (Rec: 09/27/22 13:09 [facility] [id number]) Cognitive Factors Limiting Selfcare Function Cognitive Ability Level of Alertness Alert Patient Orientation Name Attention Span Ability Capable of Focused Attention, Capable of Sustained Attention Ability to Follow Commands Able to Follow One Step Commands Cognitive Comments Cognitive Assessment Comments Pt able to follow commands for OT eval assessment. Pt is very insistent on going home. OT- Vision and Hearing OT- Hearing Assessment OT- Hearing Assessment WFL OT- Vision Assessment Vision Assessment Comments Pt wears contacts. Pt having difficulty to see lower quadrants. Pt however when having trouble would just give up to complete when trying to assess her peripheral and visual field on OT eval. To continue to assess. M7 OT- IP Mobility and Balance Start: 09/27/22 12:49 Freq: Status: Active Protocol: Document 09/27/22 12:15 [facility] (Rec: 09/27/22 13:09 [facility] [id number]) OT-Transfer Assessment Comments Mobility Comments NOt performed. Per nursing and PT, pt needing use of yudi lift at this time for mobility needs due to posterior lean, decreased balance, and weakness. M8 OT- IP Objective Assessments Start: 09/27/22 12:49 Freq: Status: Active Protocol: Document 09/27/22 12:15 [facility] (Rec: 09/27/22 13:09 [facility] [id number]) OT Gross Range of Motion Upper Extremity Range of Motion Assessment Left Impaired OT Strength Upper Extremity Strength Assessment Left Impaired Shoulder 3- Elbow 3- Forearm 3- Wrist 3- Hand 3- OT- Coordination Assessment Upper Extremity Finger to Nose Test Left UE Impaired Finger Tapping Test Left UE Impaired Comments Coordination Comments Pt not able to do finger to thumb with left hand due to weakness and swelling on LUE. OT Sensation Assessment Comments Summary Comments Intact for light touch, kinesthesia, and proprioception of LUE. Edema Edema Comments Mod swelling in left hand. M9 OT- IP Assessment and Plan Start: 09/27/22 12:49 Freq: Status: Active Protocol: Document 09/27/22 12:15 [facility] (Rec: 09/27/22 13:09 [facility] [id number]) OT Summary Assessment and Plan Potential Rehabilitation Potential Good Analytic Complexity at Evaluation Moderate Summary OT Impairments Range of Motion,Strength, Balance,Coordination, Functional Cognition, Functional Mobility,Self- Feeding,Grooming,Dressing, Toileting,Bathing,Toilet Transfers,Shower Transfers, Activity Tolerance Progress Towards Goals Slow Progress due to Medical Issues,Slow Progress due to Activity Tolerance Assessment Summary Pt MOD complexity and main barriers are steps, decreased functional use of LUE/LLE, balance, and needing Yudi lift for transfers at this time. Pt will benefit from skilled rehab. Pt's roommate states to be out of town tomorrow to [place] for a doctor's appointment and not back until . Pt states has people to assist he if going home. Goals Self-Feeding Goal Independent Grooming Goal Independent Dressing Goal Minimal Assistance Toileting Goal Minimal Assistance Bathing Goal Moderate Assistance Toilet Transfer Goal Minimal Assistance Shower Transfer Goal Moderate Assistance Days to Meet Goals 30 Frequency of Treatment Frequency Of Treatment Once a Day Treatment Plan OT Treatment Plan ADL Training,Functional Cognition Training,Functional Mobility,Neuromuscular Re- education,Patient/Family Education,Discharge Planning Other Treatment Recommendations and Next Pt to sit at edge of bed with Treatment Focus SHANNAN and able to do oral care after set-up. Discharge Recommendations OT Discharge Recommendations SNF Rehab Transportation Needs at Discharge Stretcher/Ambulance
--- NOTE | 2022-09-27 13:35 | CM.DANOTE ---
DCP: Chart review for case, met with patient at bedside, they agree to case management assessment. Completed DCP assessment based on information available. Patient is a 62 year old who lives with roommate in [place]. 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 She acknowledges 2 drinks/day, and denies referral to alcohol management programs. PCP: None, states no meds Payer: Confirms that she does not have health insurance CC: Left sided weakness confirmed CVA DCP: States she wants to return home, acknowledges weakness of left hand, moving L leg. Hopeful for recovery. PT recommendations for SNF level rehab. P: Pending application for insurance. No current payer source. Admission counselor working on qualifier. Mayelin iDallo RN, CM Discharge Planning/Care Management CM Discharge Assessment Start: 09/27/22 13:31 Freq: Status: Active Protocol: Document 09/27/22 13:31 BQ (Rec: 09/27/22 13:34 BQ [id number]) Discharge Planning Assessment Assigned Sales Operations Consultant Mayelin Diallo RN, CM Advance Directives? No History Provided By Patient,Family Member,Medical Record Has Patient been admitted in last 30 No days? Prior Living Arrangements House Household Members none Type of transporation used prior to Drives own vehicle admit Independent with ADL's Yes Is patient alert and oriented? Yes Caregiver for Another No Patient/Family Preference Custodial Facility Barriers to Discharge Yes Comment Payer source, family/friends support Discharge Plan Custodial Facility Referrals Initiated Other Additional Comment CM team will refer to SNF level rehab pending payer source Medicare Choice List Provided No Has Agency SNF been contacted No Whiteboard Updated in Patient Room with Yes name and ext. # of Sales Operations Consultant Review Status In Process Next Review Type Continued Stay Review
[2022-09-27] MEDS: NICOTINE 21 MG PATCH TOP (21:47)
[2022-09-27] MEDS: ATORVASTATIN 20 MG TABLET 40 MG PO (21:48)
[2022-09-28] VITALS (8 sets, daily range): BP systolic 92–171; BP diastolic 66–96; PULSE 69–107; RESP 18–20; TEMP 35.9–37.3; O2SAT 94–99
[2022-09-28 05:43] LABS: Add Manual Diff / Slide Review NO; Basophils Absolute Auto 0 /uL (0-100); Basophils Percent Auto 0.4 % (0-2); Eosinophils Absolute Auto 0 /uL (0-450); Eosinophils Percent Auto 0.4 % (2-4); Hematocrit 32.7 % (36-46); Hemoglobin 11.4 g/dL (12.0-16.0); Lymphocytes Absolute Auto 1200 /uL (1100-4500); Lymphocytes Percent Auto 34.8 % (25-40); Mean Corpuscular HGB Conc 34.9 % (30-36); Mean Corpuscular Hemoglobin 40.5 PG (26-34); Mean Corpuscular Volume 116.1 fL (80-100); Monocytes Absolute Auto 400 /uL (0-900); Monocytes Percent Auto 11.5 % (3-14); Neutrophils Absolute Auto 1800 /uL (1500-7000); Neutrophils Percent Auto 52.9 % (50-75); Platelet Count 167 X10^3/uL (150-400); Red Blood Cell Count 2.81 X10^6/uL (4.0-5.2); Red Cell Distribution Width 15.4 % (11.6-14.8); White Blood Cell Count 3.4 X10^3/uL (4.5-11.0)
[2022-09-28 05:51] LABS: BUN Creatinine Ratio 9.7 (6-22); Blood Urea Nitrogen 3 mg/dL (7-17); Calcium 8.3 mg/dL (8.4-10.2); Carbon Dioxide 33 mmol/L (22-32); Chloride 99 mmol/L (98-107); Estimated Glomerular Filt Rate > 60 mL/min (>60); Glucose 108 mg/dL (80-110); HEMOLYSIS < 15 (0-50); Sodium 137 mmol/L (137-145)
[2022-09-28 05:53] LABS: Potassium 2.6 mmol/L (3.4-5.1)
[2022-09-28 05:57] LABS: Anisocytosis 2+
[2022-09-28] MEDS: POTASSIUM CHLORIDE 20 MEQ TAB 40 MEQ PO ×3 (06:11→17:38)
--- NOTE | 2022-09-28 07:41 | CM.DPC ---
DCP Cont: Sent an email to the admission counselors, as their notes indicate that patient should qualify for [facility]. If so, was inquing on which plan, and when it would take effect, could possibly get patient into acute rehab. P: DCP working on attempting to see if she will be insured with Medicaid, will await hearing back from counselors, otherwise, patient will go home with friend staying with her. Jolie Ellsworth RN/Blunger
[2022-09-28] MEDS: MULTIVITAMIN 1 TABLET 1 TAB PO (09:04)
[2022-09-28] MEDS: ENOXAPARIN 40 MG/0.4 ML SYRINGE SUBCUT (09:04)
[2022-09-28] MEDS: CLOPIDOGREL 75 MG TABLET PO (09:04)
[2022-09-28] MEDS: THIAMINE 100 MG TABLET PO (09:04)
[2022-09-28] MEDS: ASPIRIN EC 81 MG TABLET PO (09:04)
--- NOTE | 2022-09-28 11:09 | CM.DPC ---
Addendum entered by Jolie Ellsworth R.N. 09/28/22 12:10: Met with patient, her parents were at bedside. Brought in a pamphlet from [facility] and explained services, as well as the therapy that she would receive. Patient wants to think about it, does not want to commit as of yet. Will meet later in the day, or in the am to confirm the plan. Aida at [facility] is reviewing, and if accepts, would need to work on the [place] auth. Original Note: DCP Cont: Have heard back from admission counselors, patient has chosen the [place] plan/Medicaid. Called over at [facility], spoke to Aida, she does like working with [place]. Asked [facility] to fax over the referral. P: DCP to continue to follow and work on getting patient over to [facility], if patient will consent to go. Jolie Ellsworth RN/Designer/Writer
--- NOTE | 2022-09-28 11:47 | PT.IPTN ---
Current Diagnoses Cerebral infarction, unspecified (09/26/22) Physical Therapy Treatment Note M2 PT-IP Current Condition Start: 09/27/22 12:10 Freq: NEEDED Status: Active Protocol: Document 09/27/22 11:00 AB (Rec: 09/27/22 12:28 AB [id number]) Physical Therapy Current Condition Current Condition Evaluation Date 09/27/22 Treatment Diagnosis R CVA L sided weakness; difficulty in walking Onset Date 09/26/22 M3 PT-IP Subjective Start: 09/27/22 12:10 Freq: NEEDED Status: Active Protocol: Document 09/28/22 11:59 TS (Rec: 09/28/22 12:13 TS [id number]) Subjective Physical Therapy Visit Type Type Treatment Note Visit Start Time 11:47 Visit Stop Time 11:57 Total Visit Minutes 10 Notes Split treat OT Number of OUTDOOR EDUCATION TEACHER Visits 1 Physical Therapy Visit Comments Patient Comments Pt found resting in bed with OT, agreeable to PT. M4 PT-IP Mobility and Gait Start: 09/27/22 12:10 Freq: NEEDED Status: Active Protocol: Document 09/28/22 11:59 TS (Rec: 09/28/22 12:13 TS [id number]) PT-Bed Mobility Assessment Supine to Sit Supine to Sit Moderate Assistance Scooting Scooting to Edge of Bed Moderate Assistance PT-Transfer Assessment Sit to and From Stand Sit to and from Stand Maximum Assistance,2 Person Assistance,Use of Upper Extremities Equipment Transfer Assistive Device Gait Belt,Front Wheeled Walker Orthotic/Prosthetic Devices or Brace: No Transfers Transfer Destination Chair,Wheelchair Transfer Technique Stand Step Pivot Transfer Ability Level of Assist Maximum Assistance,Total Assistance,2 Person Assistance ,Use of Upper Extremities Comments Mobility Comments Supine to sit HOB elevated ModA for L side, pt demonstrates left sided neglect, requires cues for LUE assist. Sit to stand MaxA x2, pt requires hand over hand assist for LUE placement on FWW, LLE knee flexed, requires cues for extending and sitting up straight. Stand step pivot transfer to chair MaxA/total assist, bilateral buckling of LEs, requires heavy cueing for steps and FWW mangement. Pt's LLE buckled requiring total assist to finish transfer to chair. Pt was left in chair with OT. Gait Assessment Comments Gait Comments Stand pivot transfer to chair. PT-Balance Assessment Sitting Balance and Reactions Static Sitting Balance Ability Fair Dynamic Sitting Balance Ability Poor Standing Balance and Reactions Static Standing Balance Ability Poor Dynamic Standing Balance Ability Poor Device Used FWW M5 PT-IP Objective Assessments Start: 09/27/22 12:10 Freq: NEEDED Status: Active Protocol: Document 09/27/22 11:00 AB (Rec: 09/27/22 12:28 AB [id number]) Orientation Orientation/Cognition Level of Alertness Alert Orientation Name Safety Awareness Decreased Safety Awareness Memory Description Short Term Impaired Gross Range of Motion Lower Extremity ROM Assessment Within Functional Limits Strength Lower Extremity Strength Assessment Left Impaired Knee 3+/5 Ankle 3+/5 Coordination Assessment Gross Coordination Gross Coordination Impaired M6 PT-IP Treatment Start: 09/27/22 12:10 Freq: NEEDED Status: Active Protocol: Document 09/28/22 11:59 TS (Rec: 09/28/22 12:13 TS [id number]) Physical Therapy Treatment Education Education Provided Safety M7 PT-IP Assessment and Plan Start: 09/27/22 12:10 Freq: NEEDED Status: Active Protocol: Document 09/28/22 11:59 TS (Rec: 09/28/22 12:13 TS [id number]) PT Summary Assessment and Plan Potential Rehabilitation Potential Fair Summary Progress Towards Goals Slow Progress due to Medical Issues Assessment Summary Pt continues to require MaxA for sit to stands and for stand pivot transfer to chair. She requires max cueing for LUE assistance for supine to sit and during sit to stands, continues to have left sided neglect. In standing pt leans heavily to L side can correct with cues and use of mirror for briefs amount of time. During stand pivot transfer pt 's LLE keron and requires max verbal and tactile cues for extension. Pt's LLE completely buckled during trasnfer and required total assist to chair. PT is recommending acute rehab vs SNF at this time for progression of bed mobility, transfers and gait. Goals Bed Mobility Goal Minimal Assistance Transfer Goal Minimal Assistance,Front Wheeled Walker Gait Goal Minimal Assistance,Front Wheel Walker Gait Distance 25 Other Goals improve bed mobility, transfers using FWW and ambulation using FWW SBA 100 ft up/down 2 steps B rail CGA Days to Meet Goals 10 Frequency of Treatment Frequency Of Treatment Once a Day Treatment Plan Physical Therapy Treatment Plan Bed Mobility Training,Transfer Training,Gait Training, Therapeutic Exercise,Balance Retraining,Discharge Planning, Hot or Cold Pack,Neuromuscular Re-ed,Coordination Retraining ,Manual Therapy Precautions Other Precautions falls Recommendations To Nursing Amount of Assist Needed Mechanical Lift Discharge Recommendations PT Discharge Recommendations SNF vs Acute Rehab Transportation Needs at Discharge Wheelchair/Cabulance
--- NOTE | 2022-09-28 12:00 | OT.IP.TRT ---
Current Diagnoses Cerebral infarction, unspecified (09/26/22) Occupational Therapy Treatment Note M2 OT-IP Current Condition Start: 09/27/22 12:49 Freq: Status: Active Protocol: Document 09/27/22 12:15 [facility] (Rec: 09/27/22 13:09 [facility] [id number]) Occupational Therapy Current Condition Current Condition Evaluation Date 09/27/22 Treatment Diagnosis CVA Diagnosis Onset Date 09/26/22 M3 OT- IP Subjective and Pain Start: 09/27/22 12:49 Freq: Status: Active Protocol: Document 09/28/22 11:30 [facility] (Rec: 09/28/22 12:23 [facility] [id number]) OT- Subjective Occupational Therapy Visit Type Type Treatment Note Visit Start Time 11:30 Visit Stop Time 12:02 Total Visit Minutes 17 Notes TIRE TECHNICIAN present for mobility needs as pt needing skilled assist for transfers. Occupational Therapy Visit Comments Patient Comments Pt agreed to get up to the recliner. Patient/Caregiver Goals To go home. M4 OT- IP ADL's Start: 09/27/22 12:49 Freq: Status: Active Protocol: Document 09/28/22 11:30 [facility] (Rec: 09/28/22 12:23 [facility] [id number]) OT PII-Lqxm-Nlmomun Comments OT Self-Feeding Comments Pt needing assist for set-up. OT ADL-Grooming General Evaluation Grooming Ability Standby Assistance,Maximum Assistance Areas Needing Assistance Combing/Brushing Hair Comments OT Grooming Comments Pt able to brush her hair with her right hand and needing CHILKOOT assist with left hand to brush her hair. OT ADL-Oral Care Comments Oral Care Comments Not performed. OT ADL-Dressing General Eval Lower Body Dressing Ability Maximum Assistance Comments OT Dressing Comments Pt attempting to use left hand to help hold the sock and unable to grasp even with CHILKOOT assist and having to asisst to help get the sock over her toes and then able to pull up with her right hand. OT ADL-Toileting General Evaluation Toileting Ability Total Assistance Comments OT Toileting Comments Pt using Pure Wick and take out for transfer. OT ADL-Bathing Comments OT Bathing Comments Sponge bath more appropriate at this time. M5 OT- IP IADL's Start: 09/27/22 12:49 Freq: Status: Active Protocol: Document 09/27/22 12:15 [facility] (Rec: 09/27/22 13:09 [facility] [id number]) OT-Instrumental Activities of Daily Living Home Safety Awareness Awareness of Need for Assistance at Home Decreased Awareness Ability to Problem Solve Emergency Able to Problem Solve Situations Home Safety Comments Pt able to answer general home safety questions correctly. M6 OT- IP Functional Cognition Start: 09/27/22 12:49 Freq: Status: Active Protocol: Document 09/28/22 11:30 [facility] (Rec: 09/28/22 12:23 [facility] [id number]) Cognitive Factors Limiting Selfcare Function Cognitive Comments Cognitive Assessment Comments Pt more alert today and would benefit from formal cognitive eval. Pt able to follow command but having difficulty for motor planning and initiation of movements. M7 OT- IP Mobility and Balance Start: 09/27/22 12:49 Freq: Status: Active Protocol: Document 09/28/22 11:30 [facility] (Rec: 09/28/22 12:23 [facility] [id number]) OT- Bed Mobility Assessment Supine to Sit Supine to Sit Assist Moderate Assistance Scooting Scooting to Edge of Bed Moderate Assistance OT-Transfer Assessment Sit to and From Stand Sit to and from Stand Maximum Assistance,2 Person Assistance Transfers Transfer Ability Maximum Assistance,Total Assistance,2 Person Assistance Technique Transfer Destination Bed,Chair Transfer Technique Stand Step Pivot Devices Transfer Assistive Devices Gait Belt,Front Wheeled Walker Comments Mobility Comments MAX AX 2 to stand and assist to help hold her left hand on the FWW and assist to block her knees, weight shift and help to move the FWW. Pt having much difficulty and starting to bend at her knees more and therefore had to do CHILKOOT assist x2 MAXA/Total assist for stand pivot transfer. Strictly kenny lift transfers for nursign at this time. OT- Balance Assessment Sitting Balance and Reactions Static Sitting Balance Ability Poor Dynamic Sitting Balance Ability Poor Standing Balance and Reactions Static Standing Balance Ability Poor Dynamic Standing Balance Ability Poor M8 OT- IP Objective Assessments Start: 09/27/22 12:49 Freq: Status: Active Protocol: Document 09/27/22 12:15 [facility] (Rec: 09/27/22 13:09 [facility] [id number]) OT Gross Range of Motion Upper Extremity Range of Motion Assessment Left Impaired OT Strength Upper Extremity Strength Assessment Left Impaired Shoulder 3- Elbow 3- Forearm 3- Wrist 3- Hand 3- OT- Coordination Assessment Upper Extremity Finger to Nose Test Left UE Impaired Finger Tapping Test Left UE Impaired Comments Coordination Comments Pt not able to do finger to thumb with left hand due to weakness and swelling on LUE. OT Sensation Assessment Comments Summary Comments Intact for light touch, kinesthesia, and proprrioception of LUE. Edema Edema Comments Mod swelling in left hand. M9 OT- IP Assessment and Plan Start: 09/27/22 12:49 Freq: Status: Active Protocol: Document 09/28/22 11:30 [facility] (Rec: 09/28/22 12:23 [facility] [id number]) OT Summary Assessment and Plan Potential Rehabilitation Potential Good Analytic Complexity at Evaluation Moderate Summary OT Impairments Range of Motion,Strength, Balance,Coordination, Functional Cognition, Functional Mobility,Self- Feeding,Grooming,Dressing, Toileting,Bathing,Toilet Transfers,Shower Transfers, Activity Tolerance Progress Towards Goals Progressing Toward Goals Assessment Summary Pt able to assist more for mobility needs and better sitting balance today and mainly leaning to the left and needing assist to help support her hand on the bed. MAXA/Total assist for transfer at this tiem due to poor body awareness of midline, strength, balance, and ability to control and use of LUE/LLE. Pt would greatly benefit from acute rehab versus skilled rehab work on extensive skills for her recovery. 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 Pt able to participate more today and more alert and to consider increasing her frequency to 2x/day tomorrow. Goals Self-Feeding Goal Independent Grooming Goal Independent Dressing Goal Minimal Assistance Toileting Goal Minimal Assistance Bathing Goal Moderate Assistance Toilet Transfer Goal Minimal Assistance Shower Transfer Goal Moderate Assistance Days to Meet Goals 30 Frequency of Treatment Frequency Of Treatment Once a Day Treatment Plan OT Treatment Plan ADL Training,Functional Cognition Training,Functional Mobility,Neuromuscular Re- education,Patient/Family Education,Discharge Planning Other Treatment Recommendations and Next Pt to sit at edge of bed with Treatment Focus SHANNAN and able to do oral care after set-up. Discharge Recommendations OT Discharge Recommendations SNF vs Acute Rehab Transportation Needs at Discharge Wheelchair/Cabulance
[2022-09-28] MEDS: FOLIC ACID 1 MG TABLET PO (12:49)
--- NOTE | 2022-09-28 14:12 | P.PN_ITS ---
Subjective Subjective Interval history: 62 F admitted with a stroke. She is slowly improving with therapies and m edications. Exam Vital Signs (past 8 hours): - 09/28/22 08:00 09/28/22 08:00 09/28/22 08:30 Temperature 99.2 F Pulse Rate 78 Respiratory Rate 18 Blood Pressure 163/96 H Pulse Oximetry 97 97 Oxygen Delivery Method Room Air Room Air Oxygen Flow Rate 0 09/28/22 12:00 09/28/22 12:36 09/28/22 12:57 Temperature 99 F Pulse Rate 107 H 103 H Respiratory Rate 18 Blood Pressure 92/66 112/73 Pulse Oximetry 97 97 Oxygen Delivery Method Room Air Oxygen Flow Rate 0 Oxygen Delivery Method Room Air Oxygen Flow Rate 0 Narrative Exam Narrative: Gen: alert, sitting in chair Heart: regular rhythm Ext: no edema Neuro: nl affect and speech, LUE 3/5, LLE 4/5 Psych: avoidant, slightly annoyed Objective Labs 09/28/22 05:15 09/28/22 05:15 Labs: Laboratory Results - last 24 hr 09/28/22 09/28/22 05:15 05:15 WBC 3.4 L RBC 2.81 L Hgb 11.4 L Hct 32.7 L MCV 116.1 H MCH 40.5 H MCHC 34.9 RDW 15.4 H Plt Count 167 Neut % (Auto) 52.9 Lymph % (Auto) 34.8 [place] % (Auto) 11.5 Eos % (Auto) 0.4 L Baso % (Auto) 0.4 Neut # (Auto) 1800 Lymph # (Auto) 1200 [place] # (Auto) 400 Eos # (Auto) 0 Baso # (Auto) 0 RBC Morphology Not Reportable Anisocytosis 2+ H Sodium 137 Potassium 2.6 L* Chloride 99 Carbon Dioxide 33 H BUN 3 L Creatinine 0.31 L Estimated GFR > 60 BUN/Creatinine Ratio 9.7 Glucose 108 Calcium 8.3 L PFSH Medical History (Updated 09/26/22 @ 13:54 by Ted Thomas MD) Alcohol dependence Social History household members: none Smoking Status: Current every day smoker alcohol intake: current Assessment & Plan Assessment & Plan narrative: 1. Acute CVA with left hemiparesis -pt presented outside of [facility]PA window -head CT, CTA unremarkable except left sinus opacification -risk factors: EtOH, smoking -brain MRI: small subacute right orta radiata infarct, volume loss and small vessel ischemic disease.? -ECHO unremarkable with no PFO. -telemetry: short run of SVT, no further events or afib and patient would like to stop telemetry. Will stop. -lipid panel: T 193, LDL 10 (ten), HDL 19, TG 68 -ASA 325 mg x 1, then 81 mg daily -Plavix 75 mg daily x 21 days for dual anti-platelet therapy -atorvastatin dose lowered to 40 mg daily in light of super low LDL -consult PT, OT - note frequent falls at home -heart healthy diet 2. Alcohol dependency and intoxication -EtOH level at 11 am 163 -CIWA protocol with lorazepam -thiamine, MVI qd -enc to quit drinking and seek help for alcohol dependency -hasn't shown signs of withdrawal 3. Cigarette nicotine dependency -enc to quit smoking -nicotine 21 mg patch prn 4. Leukopenia, macrocytic anemia -likely EtOH related -check ferritin, iron profile, B12 - no evid of iron or B12 deficiency 5. Hypokalemia - repletion per pharmacy Code status: Full DVT prevention: enoxaprin Dispo: SNF vs acute rehab vs home depending on insurance situation, patient preference, PT/OT recommendations. Quality VTE Deep Vein Thrombosis/Pulmonary Embolism Present on Admission: No
[2022-09-28 14:45] LABS: HEMOLYSIS < 15 (0-50)
[2022-09-28 14:47] LABS: Potassium 2.7 mmol/L (3.4-5.1)
[2022-09-28 16:25] LABS: Magnesium 1.2 mg/dL (1.6-2.3)
[2022-09-28] MEDS: MAGNESIUM CHLORIDE 64 MG TABLET 128 MG PO (17:38)
[2022-09-28] MEDS: ATORVASTATIN 20 MG TABLET 40 MG PO (20:52)
[2022-09-28] MEDS: SODIUM CHLORIDE 0.9% FLUSH 10 ML IV (20:52)
[2022-09-28] MEDS: NICOTINE 21 MG PATCH TOP (20:56)
[2022-09-29] VITALS (9 sets, daily range): BP systolic 145–161; BP diastolic 87–106; PULSE 69–82; RESP 17–18; TEMP 35.7–37.4; O2SAT 96–99
--- NOTE | 2022-09-29 00:53 | PC.NURSE ---
Patient is alert and oriented. Does have weakness in left extremities and difficulty with fine motor in left UE. No drift in left UE but is ataxic with that limb. Left LE drifts to bed but is able to move against gravity. NIH = 3. Does have some fine tremors in bilateral UE. Breath sounds CTA with RA sat of 99%. HRR w/elevated BP of 148/94; allowing for permissive HTN. BT present and is passing flatus. Has been incontinent of urine so wearing brief and external catheter is in place. Is able to move herself in bed. Working with PT but Yudi is being used by nursing for any transfers. SCD's not ordered. Denies pain. Fall risk score is high and bed alarm is activated. CIWA score was 4. Seizure pads on bed.
[2022-09-29] MEDS: MAGNESIUM CHLORIDE 64 MG TABLET 128 MG PO (01:00)
[2022-09-29 05:38] LABS: Basophils Absolute Auto 0 /uL (0-100); Basophils Percent Auto 0.4 % (0-2); Eosinophils Absolute Auto 0 /uL (0-450); Eosinophils Percent Auto 0.5 % (2-4); Hematocrit 33.8 % (36-46); Hemoglobin 11.7 g/dL (12.0-16.0); Lymphocytes Absolute Auto 1100 /uL (1100-4500); Lymphocytes Percent Auto 27.5 % (25-40); Mean Corpuscular HGB Conc 34.7 % (30-36); Mean Corpuscular Hemoglobin 40.1 PG (26-34); Mean Corpuscular Volume 115.7 fL (80-100); Monocytes Absolute Auto 400 /uL (0-900); Neutrophils Absolute Auto 2500 /uL (1500-7000); Neutrophils Percent Auto 61.6 % (50-75); Platelet Count 169 X10^3/uL (150-400); Red Blood Cell Count 2.93 X10^6/uL (4.0-5.2); Red Cell Distribution Width 15.5 % (11.6-14.8)
[2022-09-29 05:43] LABS: Add Manual Diff / Slide Review SLIDE REVIEW
[2022-09-29 05:52] LABS: Magnesium 1.3 mg/dL (1.6-2.3)
[2022-09-29 05:53] LABS: BUN Creatinine Ratio 8.8 (6-22); Blood Urea Nitrogen 3 mg/dL (7-17); Calcium 8.7 mg/dL (8.4-10.2); Carbon Dioxide 29 mmol/L (22-32); Chloride 104 mmol/L (98-107); Estimated Glomerular Filt Rate > 60 mL/min (>60); Glucose 111 mg/dL (80-110); HEMOLYSIS < 15 (0-50); Potassium 3.8 mmol/L (3.4-5.1); Sodium 137 mmol/L (137-145)
[2022-09-29 06:13] LABS: Anisocytosis 2+; Macrocytosis 2+
[2022-09-29] MEDS: ASPIRIN EC 81 MG TABLET PO (08:27)
[2022-09-29] MEDS: CLOPIDOGREL 75 MG TABLET PO (08:27)
[2022-09-29] MEDS: MULTIVITAMIN 1 TABLET 1 TAB PO (08:27)
[2022-09-29] MEDS: THIAMINE 100 MG TABLET PO (08:27)
[2022-09-29] MEDS: FOLIC ACID 1 MG TABLET PO (08:27)
[2022-09-29] MEDS: SODIUM CHLORIDE 0.9% FLUSH 10 ML IV ×2 (08:27→20:34)
[2022-09-29] MEDS: ENOXAPARIN 40 MG/0.4 ML SYRINGE SUBCUT (08:27)
[2022-09-29] MEDS: MAGNESIUM SULFATE 4 GM/100 ML PIGGYBACK IV (10:00)
[2022-09-29] MEDS: LOSARTAN 25 MG TABLET PO (10:00)
--- NOTE | 2022-09-29 12:49 | ST.IPIE ---
Visit Care Team Role Provider Type Doctor MD Thiago Primary Care Provider Non-Staff Specialty: Medical Address: Phone: Fax: Email: Joce Medina DO Emergency Provider Physician Referring Provider Specialty: Emergency Medicine Address: [address] [place] [address], [id number] Email: [email or web address] Attending Provider Physician Other Providers Specialty: Family Practice Address: [address] [place] [address], [address] Phone: Fax: Email: [email or web address] MD Admit Provider Physician Specialty: Internal Medicine Address: [address] [place] [address], [address] Email: [email or web address] Current Diagnoses Cerebral infarction, unspecified (09/26/22) Past Medical History (Last Updated 09/26/22 @ 13:54 by Ted Thomas MD) Alcohol dependence (Medical) ST IP Initial Evaluation Report [facility] Adult Cognitive Linguistic Eval Start: 09/29/22 12:21 Freq: Status: Active Protocol: Document 09/29/22 12:21 CG (Rec: 09/29/22 12:23 CG [id number]) Adult Cognitive Linguistic Evaluation Session Time Visit Start Time 12:05 Visit Stop Time 12:18 Total Visit Minutes 13 Visit Information Visit Number 1 Referral Referring Provider Tonie Reason for Referral CVA Setting Assessment Location Acute Care Visit Type Note Type Initial evaluation Patient Information Identification Type Name Patient History Per H&P: Pt is 62 yo female with alcohol dependency, frequent falls presents with c /o left side weakness since yesterday evening. Pt states she was sitting at dining table and noticed sudden onset of left side weakness. However, she decided not to seek medical attention and instead somehow got herself to bed. Following morning her friend checked in on her, was alarmed, and brought her to ED (pt wouldn't allow friend to call 911). On arrival pt noted to have left hemiparesis, NIH 7. Her head CT was negative except left maxillary opacification, CTA was normal. EKG NSR, poss old septal MT. Pt denies facial droop and speech difficulty. Her blood alcohol level was 163. Her friend states pt's last drink was this morning. Pt states she a couple of drinks a day and has never been in withdrawal. Also states she smokes 1/2 ppd. Not on any meds. Friend also states that pt has been weak and falling a lot over the past 6 months which they've attributed to alcohol intake. By the time I saw pt in ED her left side weakness was much improved from earlier this morning. Per OT reports, pt is able to answer safety questions about IADLs at home. However, she has not yet had a dedicated cognitive evaluation. ST to evaluate and treat as appropriate. Education Level High school graduate Hearing Hearing Level Normal Vision Vision Status Not Impaired Previous Therapy Previous Speech-Language Therapy No Subjective Patient Report Pt was laying partially reclined in bed upon ST entry to the room. She appeared irritated by [facility] evaluation but agreed to participate. She stated no difficulty swallowing food or liquids and was observed to take serial swallows of water without overt s/sx aspiration. Throughout assessment, pt appeared annoyed. She stated that they don't let you sleep here, and that the assessment [wasn't] really fun. Additionally, she jokingly stated that CAMPUS REP was a sneaky little . When CAMP[facility] REP attempted to explain visual neglect based on clock drawing, pt became defensive and stated that I didn't care what the d clock looked like. Mental Status Alert,Responsive,Uncooperative Assessment Oral Motor Examination Completed No Results Oral motor structure and function appear adequate for speech and swallowing. Informal Assessment Receptive Language Normal No Receptive Language Impairment(s) Following 2-step commands, Comprehension of conversation Expressive Language Normal Yes Pragmatic Language Normal Yes: No overt impairment, though pt was not agreeable to assessment Speech Normal Yes Cognition Normal No Cognitive Impairment(s) Short-term memory,Long-term memory,Impulsivity Formal Assessment Standardized Test/Screener Type [facility] Mental Status ([facility]) Administration Complete Results Pt scored a 17/30. According to the authors of the [facility], this is indicative of dementia . Pt demonstrated particular difficulty with the following tasks: 1. Delayed recall with interference - Pt was able to recall 2 of 5 items after a delay. Given a category cue, she was able to recall all 5 objects; however, this does not count toward her total score. 2. Calculation: Pt was unable to complete subtraction task ( 100-23) 3. Registration and Digit Span - Pt was only able to recall and reverse 3 digits. 4. Clock drawing - Pt's digits were not evenly spaced and were all placed on the right side of the clock, indicating left visual neglect. Hour markers were not accurate, and pt required repetition of time setting. Findings/Results Language Function Within functional limits Cognitive Function Moderately impaired Findings Pt presents with moderate cognitive deficits characterized by visual neglect and deficits in short term memory, working memory, and calculations. Pt does not appear aware of deficits and becomes defensive upon [facility] attempt to explain results of evaluation. Based on this evaluation, pt may not be agreeable to cognitive therapy in an inpatient rehab setting , though this setting seems most appropraite based on OT and PT needs. Cognitive Communication Deficits Self-awareness of Cognitive- No awareness Communication Deficits Concomitant Factors Concomitant Factors Visual field neglect,Other ( comment) Comment Resistance to tx Impact on Functioning Activity Limits/Particip.Rest. Mild: Interpersonal Interactions Mod: General Tasks and Demands Household Tasks Safety Risks Mod: Being Left Alone at Home Reacting to Emergency Sev: Managing Medication Traveling Alone in Community Prognosis Prognosis Guarded Based on Cognitive status,Other ( comment) Comment Resistance to tx Plan of Care Speech-Language Treatment No Patient/Caregiver Education Described results of evaluation,Patient expressed understanding of eval, but refused treatment Discharge Recommendations Inpatient rehab facility
--- NOTE | 2022-09-29 14:00 | PT.IPTN ---
Current Diagnoses Cerebral infarction, unspecified (09/26/22) Physical Therapy Treatment Note M2 PT-IP Current Condition Start: 09/27/22 12:10 Freq: NEEDED Status: Active Protocol: Document 09/27/22 11:00 AB (Rec: 09/27/22 12:28 AB [id number]) Physical Therapy Current Condition Current Condition Evaluation Date 09/27/22 Treatment Diagnosis R CVA L sided weakness; difficulty in walking Onset Date 09/26/22 M3 PT-IP Subjective Start: 09/27/22 12:10 Freq: NEEDED Status: Active Protocol: Document 09/29/22 13:37 KS (Rec: 09/29/22 15:51 KS [id number]) Subjective Physical Therapy Visit Type Type Treatment Note Visit Start Time 13:37 Visit Stop Time 14:00 Total Visit Minutes 23 Notes Split treat OT Number of PERSONNEL ADMINISTRATOR Visits 2 Physical Therapy Visit Comments Patient Comments Pt found resting in bed, agreeable to PT. M4 PT-IP Mobility and Gait Start: 09/27/22 12:10 Freq: NEEDED Status: Active Protocol: Document 09/29/22 13:37 KS (Rec: 09/29/22 15:51 KS [id number]) PT-Bed Mobility Assessment Supine to Sit Supine to Sit Minimal Assistance,1 Person Assistance Scooting Scooting to Edge of Bed Minimal Assistance PT-Transfer Assessment Sit to and From Stand Sit to and from Stand Minimal Assistance,2 Person Assistance,Use of Upper Extremities Equipment Transfer Assistive Device Gait Belt,Front Wheeled Walker Orthotic/Prosthetic Devices or Brace: No Transfers Transfer Destination Bed,Chair Transfer Technique Stand Pivot Transfer Ability Level of Assist Moderate Assistance,Maximum Assistance,2 Person Assistance Comments Mobility Comments Pt showing improvement w/ mobility requiring Min A for bed mobility, Min A x2 and cues for sit<>stand w/ FWW and Mod Ax2 for stand step pivot and stand pivot transfers from bed to chair and back. Pt requires some hand over hand on L side and has some L knee buckling. Pt left in chair w/ alarm on and all needs in reach. Gait Assessment Comments Gait Comments Stand pivot and stand step pivot transfer to chair. some L knee buckling, responds well to verbal and tactile cues. PT-Balance Assessment Sitting Balance and Reactions Static Sitting Balance Ability Fair Dynamic Sitting Balance Ability Fair Standing Balance and Reactions Static Standing Balance Ability Fair Dynamic Standing Balance Ability Poor Device Used FWW M5 PT-IP Objective Assessments Start: 09/27/22 12:10 Freq: NEEDED Status: Active Protocol: Document 09/27/22 11:00 AB (Rec: 09/27/22 12:28 AB [id number]) Orientation Orientation/Cognition Level of Alertness Alert Orientation Name Safety Awareness Decreased Safety Awareness Memory Description Short Term Impaired Gross Range of Motion Lower Extremity ROM Assessment Within Functional Limits Strength Lower Extremity Strength Assessment Left Impaired Knee 3+/5 Ankle 3+/5 Coordination Assessment Gross Coordination Gross Coordination Impaired M6 PT-IP Treatment Start: 09/27/22 12:10 Freq: NEEDED Status: Active Protocol: Document 09/29/22 13:37 KS (Rec: 09/29/22 15:51 KS [id number]) Physical Therapy Treatment Education Education Provided Safety Other Treatments Other Treatment Performed Transfers back and forth from bed and chair for practice M7 PT-IP Assessment and Plan Start: 09/27/22 12:10 Freq: NEEDED Status: Active Protocol: Document 09/29/22 13:37 KS (Rec: 09/29/22 15:51 KS [id number]) PT Summary Assessment and Plan Potential Rehabilitation Potential Good Summary Impairments Strength,Balance,Coordination, Sensation,Activity Tolerance Progress Towards Goals Slow Progress due to Medical Issues Assessment Summary Pt showed much improvement this date, ultimately requiring Min A for bed mobility, Min x2 for sit<> Stands, and Mod Ax2 for transfers due to L knee occasionally buckling and poor balance. Pt performed 3 transfers and demonstrated good tolerance. Her balance has improved today as has L side strength however L side still remains weaker, less coordinated, and with neglect as compared to her right side. Pt would greatly benefit from inpatient rehab to maximize stroke recovery potential and improve functional mobility independence. As of now, she is a high fall risk and is not safe to dc home. Goals Bed Mobility Goal Minimal Assistance Transfer Goal Minimal Assistance,Front Wheeled Walker Gait Goal Minimal Assistance,Front Wheel Walker Gait Distance 25 Other Goals improve bed mobility, transfers using FWW and ambulation using FWW SBA 100 ft up/down 2 steps B rail CGA Days to Meet Goals 10 Frequency of Treatment Frequency Of Treatment Once a Day Treatment Plan Physical Therapy Treatment Plan Bed Mobility Training,Transfer Training,Gait Training, Therapeutic Exercise,Balance Retraining,Discharge Planning, Hot or Cold Pack,Neuromuscular Re-ed,Coordination Retraining ,Manual Therapy Precautions Other Precautions falls Recommendations To Nursing Amount of Assist Needed 2 Person Assist Discharge Recommendations PT Discharge Recommendations Acute Rehab Transportation Needs at Discharge Wheelchair/Cabulance
--- NOTE | 2022-09-29 14:25 | OT.IP.TRT ---
Current Diagnoses Cerebral infarction, unspecified (09/26/22) Occupational Therapy Treatment Note M2 OT-IP Current Condition Start: 09/27/22 12:49 Freq: Status: Active Protocol: Document 09/27/22 12:15 [facility] (Rec: 09/27/22 13:09 [facility] [id number]) Occupational Therapy Current Condition Current Condition Evaluation Date 09/27/22 Treatment Diagnosis CVA Diagnosis Onset Date 09/26/22 M3 OT- IP Subjective and Pain Start: 09/27/22 12:49 Freq: Status: Active Protocol: Document 09/29/22 15:36 [facility] (Rec: 09/29/22 15:54 [facility] [id number]) OT- Subjective Occupational Therapy Visit Type Type Treatment Note Visit Start Time 13:37 Visit Stop Time 14:25 Total Visit Minutes 25 Occupational Therapy Visit Comments Patient Comments Pt agreed to get up and able to work with EXECUTIVE ADMINISTRATIVE ASST for part of the session as pt needing skilled hands for mobility needs. Patient/Caregiver Goals To go home. OT Pain Assessment Pain When Pain Assessed At Rest Pain Present Pain Present Denied Pain M4 OT- IP ADL's Start: 09/27/22 12:49 Freq: Status: Active Protocol: Document 09/29/22 15:36 [facility] (Rec: 09/29/22 15:54 [facility] [id number]) OT [id number] Comments OT Self-Feeding Comments Pt able to use her right and to eat and able to use left hand for gross degreasing solution mixer on holding onto the utensils so able to get the napkin off of it with her right hand. OT ADL-Grooming General Evaluation Grooming Ability Maximum Assistance Areas Needing Assistance Combing/Brushing Hair Comments OT Grooming Comments MAXA to assist to help to use her left hand to hold the brush to be able to brush her hair. OT ADL-Oral Care Comments Oral Care Comments Not performed. OT ADL-Dressing General Eval Lower Body Dressing Ability Maximum Assistance Comments OT Dressing Comments Pt needing [place] assist to help incorporate left hand to be able to hold the brief. Pt needing occasional CGA/SHANNAN for dynamic balance as pt tends to lean to the left. Educated for pt to use her left hand to assist with her balance by weight bearing on the seat of the recliner. OT ADL-Toileting Comments OT Toileting Comments Pt using Pure Wick and take out for transfer. OT ADL-Bathing Comments OT Bathing Comments Sponge bath more appropriate at this time. M5 OT- IP IADL's Start: 09/27/22 12:49 Freq: Status: Active Protocol: Document 09/27/22 12:15 [facility] (Rec: 09/27/22 13:09 [facility] [id number]) OT-Instrumental Activities of Daily Living Home Safety Awareness Awareness of Need for Assistance at Home Decreased Awareness Ability to Problem Solve Emergency Able to Problem Solve Situations Home Safety Comments Pt able to answer general home safety questions correctly. M6 OT- IP Functional Cognition Start: 09/27/22 12:49 Freq: Status: Active Protocol: Document 09/29/22 15:36 [facility] (Rec: 09/29/22 15:54 [facility] [id number]) Cognitive Factors Limiting Selfcare Function Cognitive Comments Cognitive Assessment Comments Per [facility], pt scored 17/30 and note left neglect on the clock . pt also neglecting use of her left hand and needing cues to use it for mobility needs. M7 OT- IP Mobility and Balance Start: 09/27/22 12:49 Freq: Status: Active Protocol: Document 09/29/22 15:36 [facility] (Rec: 09/29/22 15:54 [facility] [id number]) OT- Bed Mobility Assessment Supine to Sit Supine to Sit Assist Minimal Assistance OT-Transfer Assessment Sit to and From Stand Sit to and from Stand Minimal Assistance,2 Person Assistance Transfers Transfer Ability Moderate Assistance,Maximum Assistance,2 Person Assistance Technique Transfer Destination Bed,Chair Transfer Technique Stand Step Pivot Devices Transfer Assistive Devices None,Gait Belt,Front Wheeled Walker Comments Mobility Comments MODA/MAXA X 2, assist to hold her left hand on the FWW and support for her left elbow so able to push to help during movement of her feet during transfer. Pt also needing assist to move the FWW and balance. EXECUTIVE ADMINISTRATIVE ASST able to train nursing staff to do stand/ squat pivot with two person assist . OT- Balance Assessment Sitting Balance and Reactions Static Sitting Balance Ability Fair Dynamic Sitting Balance Ability Poor Standing Balance and Reactions Static Standing Balance Ability Poor Dynamic Standing Balance Ability Poor Comments Other Balance Tests/Deviations/Treatment Pt able to sit to midline much : better today while on the edge of the bed. Pt able to weight bear through her left hand so able to better gauge her midline/sitting balance needs. Pt doing better with standing balance and better able to control her movements to adjust herself. Pt tends to drop her left hip and knee bends due to weakness. M9 OT- IP Assessment and Plan Start: 09/27/22 12:49 Freq: Status: Active Protocol: Document 09/29/22 15:36 [facility] (Rec: 09/29/22 15:54 [facility] [id number]) OT Summary Assessment and Plan Potential Rehabilitation Potential Good Analytic Complexity at Evaluation Moderate Summary OT Impairments Range of Motion,Strength, Balance,Coordination, Functional Cognition, Functional Mobility,Self- Feeding,Grooming,Dressing, Toileting,Bathing,Toilet Transfers,Shower Transfers, Activity Tolerance Progress Towards Goals Progressing Toward Goals Assessment Summary Pt much improved today and able to educated nursing staff to be able to transfer pt standpivot with two person assist. Pt noted to have more control and movement with her LUE/LLE. Pt is very motivated to get better and has made good progress from yesterday and would greatly benefit from acute rehab. Goals Self-Feeding Goal Independent Grooming Goal Independent Dressing Goal Independent Toileting Goal Independent Bathing Goal Independent Toilet Transfer Goal Independent Shower Transfer Goal Independent Days to Meet Goals 40 Frequency of Treatment Frequency Of Treatment Twice a Day Treatment Plan OT Treatment Plan ADL Training,Functional Cognition Training,Functional Mobility,Neuromuscular Re- education,Patient/Family Education,Discharge Planning Other Treatment Recommendations and Next Transfer to [facility] with MODA X 1. Treatment Focus Discharge Recommendations OT Discharge Recommendations Acute Rehab Transportation Needs at Discharge Wheelchair/Cabulance
--- NOTE | 2022-09-29 14:27 | P.PN_ITS ---
Subjective Subjective Interval history: Patient had SLUMS of today. She is hesitant about acute rehab, but will think about it. 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 Weakness of left arm has improved. Exam Vital Signs (past 8 hours): - 09/29/22 08:00 09/29/22 10:00 09/29/22 07:00 Temperature 98 F Pulse Rate 76 76 Respiratory Rate 18 Blood Pressure 161/106 H 161/106 H Pulse Oximetry 97 97 Oxygen Delivery Method Room Air Oxygen Flow Rate 0 0 09/29/22 11:00 Temperature Pulse Rate Respiratory Rate Blood Pressure Pulse Oximetry 96 Oxygen Delivery Method Room Air Oxygen Flow Rate 0 Oxygen Delivery Method Room Air Oxygen Flow Rate 0 Narrative Exam Narrative: Gen: alert, sitting in chair Heart: regular rhythm Ext: no edema Neuro: nl affect and speech, LUE 3/5, LLE 4/5 Psych: avoidant, slightly annoyed Neuro: Weakness in left arm and leg Objective Labs 09/29/22 05:10 09/29/22 05:10 Labs: Laboratory Results - last 24 hr 09/28/22 09/28/22 09/29/22 14:01 16:00 05:10 WBC RBC Hgb Hct MCV MCH MCHC RDW Plt Count Neut % (Auto) Lymph % (Auto) [place] % (Auto) Eos % (Auto) Baso % (Auto) Neut # (Auto) Lymph # (Auto) [place] # (Auto) Eos # (Auto) Baso # (Auto) RBC Morphology Anisocytosis Macrocytosis Sodium Potassium 2.7 L* Chloride Carbon Dioxide BUN Creatinine Estimated GFR BUN/Creatinine Ratio Glucose Calcium Magnesium 1.2 L 1.3 L 09/29/22 09/29/22 05:10 05:10 WBC 4.0 L RBC 2.93 L Hgb 11.7 L Hct 33.8 L MCV 115.7 H MCH 40.1 H MCHC 34.7 RDW 15.5 H Plt Count 169 Neut % (Auto) 61.6 Lymph % (Auto) 27.5 [place] % (Auto) 10.0 Eos % (Auto) 0.5 L Baso % (Auto) 0.4 Neut # (Auto) 2500 Lymph # (Auto) 1100 [place] # (Auto) 400 Eos # (Auto) 0 Baso # (Auto) 0 RBC Morphology See below Anisocytosis 2+ H Macrocytosis 2+ H Sodium 137 Potassium 3.8 Chloride 104 Carbon Dioxide 29 BUN 3 L Creatinine 0.34 L Estimated GFR > 60 BUN/Creatinine Ratio 8.8 Glucose 111 H Calcium 8.7 Magnesium [facility] Medical History (Updated 09/26/22 @ 13:54 by Ted Thomas MD) Alcohol dependence Social History household members: none Smoking Status: Current every day smoker alcohol intake: current Assessment & Plan Assessment & Plan narrative: 1. Acute CVA with left hemiparesis -pt presented outside of TPA window -head CT, CTA unremarkable except left sinus opacification -risk factors: EtOH, smoking -brain MRI: small subacute right orta radiata infarct, volume loss and small vessel ischemic disease.? -ECHO unremarkable with no PFO. -telemetry: short run of SVT, no further events or afib and patient would like to stop telemetry. Will stop. -lipid panel: T 193, LDL 10 (ten), HDL 19, TG 68 -ASA 325 mg x 1, then 81 mg daily -Plavix 75 mg daily x 21 days for dual anti-platelet therapy -atorvastatin dose lowered to 40 mg daily in light of super low LDL -consult PT, OT - note frequent falls at home, they are recommending acute inpatient rehab, but patient is hesitant and wants to go home -heart healthy diet 2. Alcohol dependency and intoxication -EtOH level at 11 am 163 -CIWA protocol with lorazepam -thiamine, MVI qd -enc to quit drinking and seek help for alcohol dependency -hasn't shown signs of withdrawal 3. Cigarette nicotine dependency -enc to quit smoking -nicotine 21 mg patch prn 4. Leukopenia, macrocytic anemia -likely EtOH related -check ferritin, iron profile, B12 - no evid of iron or B12 deficiency 5. Hypokalemia/hypomagnesemia - replete and monitor Code status: Full DVT prevention: enoxaprin Dispo: Pending auth for acute inpatient rehab. Quality VTE Deep Vein Thrombosis/Pulmonary Embolism Present on Admission: No
[2022-09-29] MEDS: NICOTINE 21 MG PATCH TOP (20:33)
[2022-09-29] MEDS: ATORVASTATIN 20 MG TABLET 40 MG PO (20:33)
[2022-09-30] VITALS (9 sets, daily range): BP systolic 133–152; BP diastolic 82–92; PULSE 67–99; RESP 17–20; TEMP 35.9–37.1; O2SAT 95–99
[2022-09-30 06:30] LABS: Basophils Absolute Auto 0 /uL (0-100); Basophils Percent Auto 0.4 % (0-2); Eosinophils Absolute Auto 0 /uL (0-450); Eosinophils Percent Auto 0.6 % (2-4); Hematocrit 34.1 % (36-46); Hemoglobin 11.7 g/dL (12.0-16.0); Lymphocytes Absolute Auto 1000 /uL (1100-4500); Lymphocytes Percent Auto 26.1 % (25-40); Mean Corpuscular HGB Conc 34.3 % (30-36); Mean Corpuscular Hemoglobin 40.3 PG (26-34); Mean Corpuscular Volume 117.5 fL (80-100); Monocytes Absolute Auto 500 /uL (0-900); Monocytes Percent Auto 11.5 % (3-14); Neutrophils Absolute Auto 2500 /uL (1500-7000); Neutrophils Percent Auto 61.4 % (50-75); Platelet Count 182 X10^3/uL (150-400); Red Cell Distribution Width 15.6 % (11.6-14.8)
[2022-09-30 06:33] LABS: Add Manual Diff / Slide Review SLIDE REVIEW
[2022-09-30 06:47] LABS: Magnesium 1.7 mg/dL (1.6-2.3)
[2022-09-30 06:48] LABS: BUN Creatinine Ratio 13.9 (6-22); Blood Urea Nitrogen 5 mg/dL (7-17); Carbon Dioxide 28 mmol/L (22-32); Chloride 103 mmol/L (98-107); Estimated Glomerular Filt Rate > 60 mL/min (>60); Glucose 97 mg/dL (80-110); HEMOLYSIS 16 (0-50); Potassium 3.6 mmol/L (3.4-5.1); Sodium 136 mmol/L (137-145)
[2022-09-30 07:06] LABS: Anisocytosis 2+; Macrocytosis 2+
[2022-09-30 07:08] LABS: Stomatocytes 1+
[2022-09-30] MEDS: THIAMINE 100 MG TABLET PO (08:58)
[2022-09-30] MEDS: FOLIC ACID 1 MG TABLET PO (08:58)
[2022-09-30] MEDS: ASPIRIN EC 81 MG TABLET PO (08:58)
[2022-09-30] MEDS: MULTIVITAMIN 1 TABLET 1 TAB PO (08:59)
[2022-09-30] MEDS: ENOXAPARIN 40 MG/0.4 ML SYRINGE SUBCUT (08:59)
[2022-09-30] MEDS: LOSARTAN 25 MG TABLET PO (08:59)
[2022-09-30] MEDS: CLOPIDOGREL 75 MG TABLET PO (08:59)
[2022-09-30] MEDS: SODIUM CHLORIDE 0.9% FLUSH 10 ML IV ×2 (09:00→21:55)
--- NOTE | 2022-09-30 09:35 | OT.IP.TRT ---
Current Diagnoses Cerebral infarction, unspecified (09/26/22) Occupational Therapy Treatment Note M2 OT-IP Current Condition Start: 09/27/22 12:49 Freq: Status: Active Protocol: Document 09/27/22 12:15 [facility] (Rec: 09/27/22 13:09 [facility] [id number]) Occupational Therapy Current Condition Current Condition Evaluation Date 09/27/22 Treatment Diagnosis CVA Diagnosis Onset Date 09/26/22 M3 OT- IP Subjective and Pain Start: 09/27/22 12:49 Freq: Status: Active Protocol: Document 09/30/22 09:35 [facility] (Rec: 09/30/22 10:23 [facility] [id number]) OT- Subjective Occupational Therapy Visit Type Type Treatment Note Visit Start Time 09:11 Visit Stop Time 09:35 Total Visit Minutes 24 Occupational Therapy Visit Comments Patient Comments Pt in the room and talking to her friend about possibly going to acute rehab. Patient/Caregiver Goals TO get better. OT Pain Assessment Pain When Pain Assessed At Rest Pain Present Pain Present Denied Pain M4 OT- IP ADL's Start: 09/27/22 12:49 Freq: Status: Active Protocol: Document 09/30/22 09:35 [facility] (Rec: 09/30/22 10:23 [facility] [id number]) OT [id number] Comments OT Self-Feeding Comments Not at meal time. OT ADL-Grooming Comments OT Grooming Comments NOt performed OT ADL-Oral Care Comments Oral Care Comments Not performed. OT ADL-Dressing Comments OT Dressing Comments Not performed OT ADL-Toileting Comments OT Toileting Comments Pure Wick in place. M5 OT- IP IADL's Start: 09/27/22 12:49 Freq: Status: Active Protocol: Document 09/27/22 12:15 [facility] (Rec: 09/27/22 13:09 [facility] [id number]) OT-Instrumental Activities of Daily Living Home Safety Awareness Awareness of Need for Assistance at Home Decreased Awareness Ability to Problem Solve Emergency Able to Problem Solve Situations Home Safety Comments Pt able to answer general home safety questions correctly. M6 OT- IP Functional Cognition Start: 09/27/22 12:49 Freq: Status: Active Protocol: Document 09/30/22 09:35 [facility] (Rec: 09/30/22 10:23 [facility] [id number]) Cognitive Factors Limiting Selfcare Function Cognitive Ability Level of Alertness Alert Patient Orientation Name,Age,Birthday,Month,Date, Year,Day of Week,Place, Situation Attention Span Ability Capable of Focused Attention, Capable of Sustained Attention Ability to Follow Commands Able to Follow One Step Commands Cognitive Tests SLUMS 26/30 Able to recall 4/5 objects after time passed, unable to draw the hand of the cloak appropriately after time given, and able to answer 3/4 questions right after paragraph read. Cognitive Comments Cognitive Assessment Comments Much improved today on the SLUMS, pt states yesterday just did not care to do it. Pt today scored 26/30. Pt is very tearful and realizes that acute rehab would be good for her and now fully on board to go and motivated to go and get better. M8 OT- IP Objective Assessments Start: 09/27/22 12:49 Freq: Status: Active Protocol: Document 09/27/22 12:15 [facility] (Rec: 09/27/22 13:09 [facility] [id number]) OT Gross Range of Motion Upper Extremity Range of Motion Assessment Left Impaired OT Strength Upper Extremity Strength Assessment Left Impaired Shoulder 3- Elbow 3- Forearm 3+ Wrist 3+ Hand 3+ OT- Coordination Assessment Upper Extremity Finger to Nose Test Left UE Impaired Finger Tapping Test Left UE Impaired Comments Coordination Comments Pt not able to do finger to thumb with left hand due to weakness and swelling on LUE. OT Sensation Assessment Comments Summary Comments Intact for light touch, kinesthesia, and proprrioception of LUE. Edema Edema Comments Mod swelling in left hand. M9 OT- IP Assessment and Plan Start: 09/27/22 12:49 Freq: Status: Active Protocol: Document 09/30/22 09:35 [facility] (Rec: 09/30/22 10:23 [facility] [id number]) OT Summary Assessment and Plan Potential Rehabilitation Potential Good Analytic Complexity at Evaluation Moderate Summary OT Impairments Range of Motion,Strength, Balance,Coordination, Functional Cognition, Functional Mobility,Self- Feeding,Grooming,Dressing, Toileting,Bathing,Toilet Transfers,Shower Transfers, Activity Tolerance Progress Towards Goals Progressing Toward Goals Assessment Summary Pt scored 26/30 from 1730 on the SLUM today which implies normal cognition- pt able to accurate space the number on the clock today. Pt is now willing and wants to go to acute rehab. Goals Self-Feeding Goal Independent Grooming Goal Independent Dressing Goal Independent Toileting Goal Independent Bathing Goal Independent Toilet Transfer Goal Independent Shower Transfer Goal Independent Days to Meet Goals 30 Frequency of Treatment Frequency Of Treatment Twice a Day Treatment Plan OT Treatment Plan ADL Training,Functional Cognition Training,Functional Mobility,Neuromuscular Re- education,Patient/Family Education,Discharge Planning Other Treatment Recommendations and Next Transfer to [facility] with MODA X 1. Treatment Focus Discharge Recommendations OT Discharge Recommendations Acute Rehab Transportation Needs at Discharge Private Vehicle,Wheelchair/ Cabulance
[2022-09-30] MEDS: MAGNESIUM CHLORIDE 64 MG TABLET 128 MG PO (10:40)
--- NOTE | 2022-09-30 11:15 | PT.IPTN ---
Current Diagnoses Cerebral infarction, unspecified (09/26/22) Physical Therapy Treatment Note M2 PT-IP Current Condition Start: 09/27/22 12:10 Freq: NEEDED Status: Active Protocol: Document 09/27/22 11:00 AB (Rec: 09/27/22 12:28 AB [id number]) Physical Therapy Current Condition Current Condition Evaluation Date 09/27/22 Treatment Diagnosis R CVA L sided weakness; difficulty in walking Onset Date 09/26/22 M3 PT-IP Subjective Start: 09/27/22 12:10 Freq: NEEDED Status: Active Protocol: Document 09/30/22 11:44 TS (Rec: 09/30/22 12:11 TS [id number]) Subjective Physical Therapy Visit Type Type Treatment Note Visit Start Time 11:15 Visit Stop Time 11:38 Total Visit Minutes 23 Number of SHEET METAL JOURNEYMAN Visits 3 Physical Therapy Visit Comments Patient Comments Pt found resting in bed, agreeable to PT. M4 PT-IP Mobility and Gait Start: 09/27/22 12:10 Freq: NEEDED Status: Active Protocol: Document 09/30/22 11:44 TS (Rec: 09/30/22 12:11 TS [id number]) PT-Bed Mobility Assessment Supine to Sit Supine to Sit Contact Guard Assistance Scooting Scooting to Edge of Bed Contact Guard Assistance PT-Transfer Assessment Sit to and From Stand Sit to and from Stand Minimal Assistance,1 Person Assistance,Use of Upper Extremities Equipment Transfer Assistive Device None,Gait Belt,Front Wheeled Walker Orthotic/Prosthetic Devices or Brace: No Comments Mobility Comments Supine to sit HOB elevated CGA with BUE support pushing from bed. She scooted to EOB CGA required extra time to get feet flat on floor due to poor strength and coordination of LUE. Sit to stand x1 Giancarlo, provided cues for LLE extended for decreased bend in knee and weight shift to R side. She ambulated in FWW ~80' Giancarlo for balance. She required cues for staying close to FWW, stronger grasp on FWW and for heel to toe contact on left side. Pt reported feeling fatgiued during gait and requested to sit in chair. Pt was left in chair with chair alarm on, call light nearby, RN notified. Gait Assessment Gait Gait Assistance Required: Minimum Assistance,1 Person Assist Distance (Feet) 80 Assistive Devices Assistive Device Gait Belt,Front Wheeled Walker Orthotic/Prosthetic Devices or Brace: No Gait Deviations General Gait Pattern Decreased Stride Length, Decreased Feet Clearance, Lateral Trunk Lean,Step-to Gait Factors Limiting Gait Function Factors Limiting Gait Function Decreased Activity Tolerance, Decreased Strength,Difficulty Following Directions, Incoordination,Poor Balance, Poor Safety Awareness Comments Gait Comments See mobility comments. PT-Balance Assessment Sitting Balance and Reactions Static Sitting Balance Ability Good Dynamic Sitting Balance Ability Poor Standing Balance and Reactions Static Standing Balance Ability Fair Dynamic Standing Balance Ability Fair Device Used FWW M5 PT-IP Objective Assessments Start: 09/27/22 12:10 Freq: NEEDED Status: Active Protocol: Document 09/27/22 11:00 AB (Rec: 09/27/22 12:28 AB [id number]) Orientation Orientation/Cognition Level of Alertness Alert Orientation Name Safety Awareness Decreased Safety Awareness Memory Description Short Term Impaired Gross Range of Motion Lower Extremity ROM Assessment Within Functional Limits Strength Lower Extremity Strength Assessment Left Impaired Knee 3+/5 Ankle 3+/5 Coordination Assessment Gross Coordination Gross Coordination Impaired M6 PT-IP Treatment Start: 09/27/22 12:10 Freq: NEEDED Status: Active Protocol: Document 09/30/22 11:44 TS (Rec: 09/30/22 12:11 TS [id number]) Physical Therapy Treatment Education Education Provided Safety M7 PT-IP Assessment and Plan Start: 09/27/22 12:10 Freq: NEEDED Status: Active Protocol: Document 09/30/22 11:44 TS (Rec: 09/30/22 12:11 TS [id number]) PT Summary Assessment and Plan Potential Rehabilitation Potential Good Summary Impairments Strength,Balance,Coordination, Sensation,Activity Tolerance Progress Towards Goals Slow Progress due to Medical Issues Assessment Summary Pt continues to make slow progress with her mobility. She requires Max cueing for all mobility and continues to have L sided weakness with poor coordination. She did progress her gait to 80' with Giancarlo, requires max cueing for step sequencing and FWW management. She is self- correcting more and can cue herself for her LLE buckling. She continues to be impulsive to move before therapist is ready and has poor safety awareness throughout session. She remains a high falls risk. PT is recommending acute rehab to progress bed mobility , transfers ad gait before safe return home. Goals Bed Mobility Goal Minimal Assistance Transfer Goal Minimal Assistance,Front Wheeled Walker Gait Goal Minimal Assistance,Front Wheel Walker Gait Distance 25 Other Goals improve bed mobility, transfers using FWW and ambulation using FWW SBA 100 ft up/down 2 steps B rail CGA Days to Meet Goals 10 Frequency of Treatment Frequency Of Treatment Once a Day Treatment Plan Physical Therapy Treatment Plan Bed Mobility Training,Transfer Training,Gait Training, Therapeutic Exercise,Balance Retraining,Discharge Planning, Hot or Cold Pack,Neuromuscular Re-ed,Coordination Retraining ,Manual Therapy Precautions Other Precautions falls Recommendations To Nursing Amount of Assist Needed 1 Person Assist Discharge Recommendations PT Discharge Recommendations Acute Rehab Transportation Needs at Discharge Wheelchair/Cabulance
--- NOTE | 2022-09-30 12:03 | CM.DPC ---
Addendum entered by Jolie Ellsworth R.N. 09/30/22 15:42: Faxed over updated O.T and P.T. notes to [facility], patient has been participating. Called Aida, and let her know that updated notes were just sent. She did submit auth. stated that there could be a chance they can here by this pm or the weekend regarding auth. Will follow up tomorrow, Ivy will be doing Roya's desk over the weekend, and Rick is there on Monday. Katarina at [facility] was also going to check with her executive services administrator regarding a one time agreement for [place]. Addendum entered by Jolie Ellsworth R.N. 09/30/22 14:30: Aida called back from [facility]. She indicated that she submitted auth, she was concerned initially about patient's participation. Aida is familiar with Delma at [facility], she left her a message regarding the auth on patient. She is unsure if she can get this by the weekend. Updated Dr. Schilling. If patient does improve over the weekend, other option is home. Aida indicated that Ivy is the weekend contact at [facility], and rick will be back on Monday. Addendum entered by Jolie Ellsworth R.N. 09/30/22 12:39: Did call Katarina at [facility] to see if they take [place] patients, as back up, in case patient is unable to go to acute rehab. Katarina indicated that she would ask her tactical air control party manager, and call back. She said that at times, they can establish a one time contract. Original Note: DCP Cont: Faxed over latest therapy notes yesterday afternoon, and progress note, per Roya at [facility]'s request. Confirmed that fax did go through. Called Roya this morning, she was pretty sure that she received them, but was not at her desk, and would check. Patient is currently stable for discharge pending acceptance, and [place] auth. According to therapy, she continues to improve daily. Patient has stated that she will go to inpatient acute rehab, but does tend to change her mind. Only other option is home, and she would need to have someone assist, or stay with her. P: Have not yet heard back from Roya from [facility], left her another message to inquire if she has submitted auth. Roya has mentioned before that she likes working with [place], and should not have trouble getting an auth. As is Monday before , this [place] environmental planner is hopeful that she can get auth today. P: DCP to continue to work on plan. Working on getting patient to inpatient acute rehab at [facility], pending insurance auth. If no auth is received, will have to work on a home plan. Patient has no current PCP, and would be challenging getting home health for patient. Jolie Ellsworth RN/Air Defense Artillery Officer
--- NOTE | 2022-09-30 14:23 | OT.IP.TRT ---
Current Diagnoses Cerebral infarction, unspecified (09/26/22) Occupational Therapy Treatment Note M2 OT-IP Current Condition Start: 09/27/22 12:49 Freq: Status: Active Protocol: Document 09/27/22 12:15 [facility] (Rec: 09/27/22 13:09 [facility] [id number]) Occupational Therapy Current Condition Current Condition Evaluation Date 09/27/22 Treatment Diagnosis CVA Diagnosis Onset Date 09/26/22 M3 OT- IP Subjective and Pain Start: 09/27/22 12:49 Freq: Status: Active Protocol: Document 09/30/22 13:50 [facility] (Rec: 09/30/22 15:42 [facility] [id number]) OT- Subjective Occupational Therapy Visit Type Type Treatment Note Visit Start Time 13:50 Visit Stop Time 14:23 Total Visit Minutes 33 Occupational Therapy Visit Comments Patient Comments Pt now realizes, willing, and wanting to to go rehab. Pt now seems to have accepted that she has had a CVA. Patient/Caregiver Goals To go to acute rehab. OT Pain Assessment Pain When Pain Assessed At Rest Pain Present Pain Present Denied Pain M4 OT- IP ADL's Start: 09/27/22 12:49 Freq: Status: Active Protocol: Document 09/30/22 13:50 [facility] (Rec: 09/30/22 15:42 [facility] [id number]) OT [id number] Comments OT Self-Feeding Comments Pt able to use her left hand to assist with set-up for gross grasp. OT ADL-Grooming Comments OT Grooming Comments NOt performed OT ADL-Oral Care Comments Oral Care Comments Not performed. OT ADL-Dressing Comments OT Dressing Comments Pt able to grasp the sock with left and but needing assist to help left hand hold so able to get the sock up over her feet. OT ADL-Toileting Comments OT Toileting Comments Pt able to wipe and needing assist to hold her LUE on the grab bar to help to stand and assist for balance and pt able to pull up her brief with right hand. OT ADL-Bathing Comments OT Bathing Comments Pt more appropriate to try a shower soon as mobilizing a lot better and also better control on her LUE. M6 OT- IP Functional Cognition Start: 09/27/22 12:49 Freq: Status: Active Protocol: Document 09/30/22 13:50 [facility] (Rec: 09/30/22 15:42 [facility] [id number]) Cognitive Factors Limiting Selfcare Function Cognitive Comments Cognitive Assessment Comments Pt not having better insight of her needs now. Pt is not impulsive and able to wait from the therapist's directions. M7 OT- IP Mobility and Balance Start: 09/27/22 12:49 Freq: Status: Active Protocol: Document 09/30/22 13:50 [facility] (Rec: 09/30/22 15:42 [facility] [id number]) OT- Bed Mobility Assessment Sit to Supine Sit to Supine Assist Standby Assistance OT-Transfer Assessment Transfers Transfer Ability Moderate Assistance Technique Transfer Destination Bed,Chair,Toilet Devices Transfer Assistive Devices None,Gait Belt,Front Wheeled Walker Comments Mobility Comments Assist for LLE to help to FWW handle so able to weight bear and assist so able to move her LLE with use of the FWW. Pt' s LLE is weak , unsteady and needing cues to keep her ankle from turning. OT- Balance Assessment Sitting Balance and Reactions Static Sitting Balance Ability Good Dynamic Sitting Balance Ability Fair Standing Balance and Reactions Static Standing Balance Ability Fair Dynamic Standing Balance Ability Poor Comments Other Balance Tests/Deviations/Treatment Pt able to stand to midline : with assist for balance now, overall much improve awareness and balance. Pt still having LUE/LLE weakness which affects for balance and mobility needs. M8 OT- IP Objective Assessments Start: 09/27/22 12:49 Freq: Status: Active Protocol: Document 09/30/22 13:50 [facility] (Rec: 09/30/22 15:42 [facility] [id number]) OT Strength Upper Extremity Strength Assessment Left Impaired Shoulder 3- Elbow 3+ Forearm 3+ Wrist 3+ Hand 3+ OT- Coordination Assessment Comments Coordination Comments Pt able to use her left hand to help hold pillow case so able to assist to get a pillow into it. Pt able to hold the pillow with both hand and able to throw the pillow towards the therapist. Pt mainly using RUE, but able to use LUE to assist. Pt's movements are slow and weak at this time but improving greatly. M9 OT- IP Assessment and Plan Start: 09/27/22 12:49 Freq: Status: Active Protocol: Document 09/30/22 13:50 [facility] (Rec: 09/30/22 15:42 [facility] [id number]) OT Summary Assessment and Plan Potential Rehabilitation Potential Excellent Analytic Complexity at Evaluation Moderate Summary OT Impairments Range of Motion,Strength, Balance,Coordination, Functional Cognition, Functional Mobility,Self- Feeding,Grooming,Dressing, Toileting,Bathing,Toilet Transfers,Shower Transfers, Activity Tolerance Progress Towards Goals Progressing Toward Goals Assessment Summary Pt able to use fww with skilled assist to be able to hold the LUE on the FWW so able to push down to help advance her LLE. Pt would greatly benefit from acute rehab to intensively work on improving her strength, coordination, efficiency of movement, fluidity of movements of LUE and LLE. 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 Pt is a great candidate for inpt acute rehab , willing and motivated to go. Goals Self-Feeding Goal Independent Grooming Goal Independent Dressing Goal Independent Toileting Goal Independent Bathing Goal Independent Toilet Transfer Goal Independent Shower Transfer Goal Independent Days to Meet Goals 25 Frequency of Treatment Frequency Of Treatment Twice a Day Treatment Plan OT Treatment Plan ADL Training,Functional Cognition Training,Functional Mobility,Neuromuscular Re- education,Patient/Family Education,Discharge Planning Other Treatment Recommendations and Next shower Treatment Focus Discharge Recommendations OT Discharge Recommendations Acute Rehab Transportation Needs at Discharge Private Vehicle,Wheelchair/ Cabulance
--- NOTE | 2022-09-30 14:51 | P.PN_ITS ---
Subjective Subjective Interval history: Patient willing to go to acute rehab. Awaiting insurance auth. Exam Vital Signs (past 8 hours): - 09/30/22 08:59 09/30/22 09:00 09/30/22 07:00 Temperature 97.3 F L Pulse Rate 85 85 Respiratory Rate 17 Blood Pressure 145/82 H 145/82 H Pulse Oximetry 97 97 Oxygen Delivery Method Room Air Oxygen Flow Rate 0 0 09/30/22 11:00 Temperature Pulse Rate Respiratory Rate Blood Pressure Pulse Oximetry 97 Oxygen Delivery Method Room Air Oxygen Flow Rate 0 Oxygen Delivery Method Room Air Oxygen Flow Rate 0 Narrative Exam Narrative: Gen: alert, lying in bed, intermittently tearful Heart: regular rhythm Ext: no edema Neuro: nl affect and speech, LUE 3/5, LLE 4/5 Objective Labs 09/30/22 06:06 09/30/22 06:06 Labs: Laboratory Results - last 24 hr 09/30/22 09/30/22 09/30/22 06:06 06:06 06:06 WBC 4.0 L RBC 2.90 L Hgb 11.7 L Hct 34.1 L MCV 117.5 H MCH 40.3 H MCHC 34.3 RDW 15.6 H Plt Count 182 Neut % (Auto) 61.4 Lymph % (Auto) 26.1 Clinch % (Auto) 11.5 Eos % (Auto) 0.6 L Baso % (Auto) 0.4 Neut # (Auto) 2500 Lymph # (Auto) 1000 L Clinch # (Auto) 500 Eos # (Auto) 0 Baso # (Auto) 0 RBC Morphology See below Anisocytosis 2+ H Macrocytosis 2+ H Stomatocytes 1+ H Sodium 136 L Potassium 3.6 Chloride 103 Carbon Dioxide 28 BUN 5 L Creatinine 0.36 L Estimated GFR > 60 BUN/Creatinine Ratio 13.9 Glucose 97 Calcium 9.0 Magnesium 1.7 PFSH Medical History (Updated 09/26/22 @ 13:54 by Ted Thomas MD) Alcohol dependence Social History household members: none Smoking Status: Current every day smoker alcohol intake: current Assessment & Plan Assessment & Plan narrative: 1. Acute CVA with left-sided weakness -pt presented outside of TPA window -head CT, CTA unremarkable except left sinus opacification -risk factors: EtOH, smoking -brain MRI: small subacute right orta radiata infarct, volume loss and small vessel ischemic disease.? -ECHO unremarkable with no PFO. -telemetry: short run of SVT, no further events or afib and patient would like to stop telemetry. Will stop. -lipid panel: T 193, LDL 10 (ten), HDL 19, TG 68 -ASA 325 mg x 1, then 81 mg daily -Plavix 75 mg daily x 21 days for dual anti-platelet therapy -atorvastatin dose lowered to 40 mg daily in light of super low LDL -consult PT, OT - note frequent falls at home, they are recommending acute inpatient rehab, for which patient is agreeable -heart healthy diet 2. Alcohol dependency and intoxication, stable -EtOH level at 11 am 163 -CIWA protocol with lorazepam -thiamine, MVI qd -enc to quit drinking and seek help for alcohol dependency -hasn't shown signs of withdrawal 3. Cigarette nicotine dependency -enc to quit smoking -nicotine 21 mg patch prn 4. Leukopenia, macrocytic anemia -likely EtOH related -check ferritin, iron profile, B12 - no evid of iron or B12 deficiency 5. Hypokalemia/hypomagnesemia - replete and monitor Code status: Full DVT prevention: enoxaprin Dispo: Pending auth for acute inpatient rehab. Quality VTE Deep Vein Thrombosis/Pulmonary Embolism Present on Admission: No
[2022-09-30] MEDS: ATORVASTATIN 20 MG TABLET 40 MG PO (21:54)
[2022-10-01 04:00] VITALS: BP 124/88; PULSE 99; RESP 18; TEMP 36.9; O2SAT 99
[2022-10-01 07:00] VITALS: O2SAT 99
--- NOTE | 2022-10-01 07:18 | PM.PN.1 ---
Subjective Subjective Interval history: 62-year-old female with alcohol dependence with intoxication on admission, tobacco dependence who was admitted with acute stroke with left-sided weakness, leukopenia, macrocytic anemia, hypokalemia and hypomagnesemia. Patient reports she is making progress. She is now able to ambulate with a walker. She continues to have some left-sided weakness. She complains that she was not able to sleep until about 530 this morning. She was able to get 1 hour of sleep then and took an additional 1 hour nap this morning. She denies any other complaints. Exam Vital Signs (past 8 hours): - 10/01/22 04:00 Temperature 98.5 F Pulse Rate 99 H Respiratory Rate 18 Blood Pressure 124/88 Pulse Oximetry 99 Oxygen Flow Rate 0 Oxygen Delivery Method Room Air Oxygen Flow Rate 0 Narrative Exam Narrative: GEN: Alert and oriented x 3, NAD HEENT:NC, Face symmetric CHEST: Respiratory excursions symmetric, CTAB CV: RRR, no M/R/G ABD: Soft, NT/ND, BT present in all 4 quadrants, no organomegaly or masses EXTR: warm, well perfused, no C/C/E SKIN: warm and dry, no rash NEURO: Alert and oriented x 3, moderate left-sided weakness observed when patient attempted to sit up Objective Labs 09/30/22 06:06 09/30/22 06:06 [facility] Medical History (Updated 09/26/22 @ 13:54 by Ted Thomas MD) Alcohol dependence Social History household members: none Smoking Status: Current every day smoker alcohol intake: current Assessment & Plan Assessment & Plan narrative: 1. Acute cerebrovascular accident with a subacute right orta radiata infarct with left-sided weakness Continue working with PT and OT. Await acceptance to acute inpatient rehab. Continue dual antiplatelet therapy for 21 days followed by aspirin monotherapy. Lipid panel revealed an LDL of 10. No AFib on telemetry. Echocardiogram revealed no PFO and was otherwise unremarkable. She remains on atorvastatin at moderate intensity dosing due to her low LDL. 2. Alcohol dependency with intoxication on admission Continue multivitamin and thiamine. No evidence for withdrawal. 3. Tobacco dependence Continue nicotine patch as needed. 4. Leukopenia and macrocytic anemia [place] to be due to marrow suppression from alcohol dependence. White blood cell count is somewhat improved at 4.0. Hemoglobin stable at 11.7. 5. Hypokalemia/hypomagnesemia Improved with repletion. Code status Full Prophylaxis Lovenox Disposition Acute inpatient rehab when accepted. Insurance authorization has been received. Quality VTE Deep Vein Thrombosis/Pulmonary Embolism Present on Admission: No
--- NOTE | 2022-10-01 08:09 | PC.NURSE ---
Addendum entered by Nahid Tamayo R.N. 10/01/22 14:27: D/c paperwork redone, meds finalized. IV d/c'd. Pt readied for d/c. Instructions given to parents. Parents taking Pt to rehab at [facility]. Addendum entered by Nahid Tamayo R.N. 10/01/22 13:27: Pt d/c'd to rehab. info packet with Pt. Instructions given to Pt. Dr. Rodriguez finalized meds though it didn't show on paperwork. Discussed this with Dr. Rodriguez. Original Note: Pt alert and oriented, somewhat impulsive. Follows commands with some reinforcement. Left Upper and Lower extremities weak. Requires one person, gait belt, and some reminding. Taking b'fast without overt difficulty.
[2022-10-01] MEDS: ASPIRIN EC 81 MG TABLET PO (09:30)
[2022-10-01] MEDS: FOLIC ACID 1 MG TABLET PO (09:30)
[2022-10-01] MEDS: ENOXAPARIN 40 MG/0.4 ML SYRINGE SUBCUT (09:30)
[2022-10-01 09:31] VITALS: BP 137/87; PULSE 82
[2022-10-01] MEDS: CLOPIDOGREL 75 MG TABLET PO (09:31)
[2022-10-01] MEDS: THIAMINE 100 MG TABLET PO (09:31)
[2022-10-01] MEDS: LOSARTAN 25 MG TABLET PO (09:31)
[2022-10-01] MEDS: MULTIVITAMIN 1 TABLET 1 TAB PO (09:31)
[2022-10-01 09:46] VITALS: BP 137/87; PULSE 82; RESP 20; TEMP 37.1
[2022-10-01] MEDS: NICOTINE 21 MG PATCH TOP (10:31)
[2022-10-01] MEDS: SODIUM CHLORIDE 0.9% FLUSH 10 ML IV (10:32)
--- NOTE | 2022-10-01 10:38 | CM.DPC ---
Addendum entered by OSCAR Santizo 10/01/22 13:20: ADD: Return call from [employer] stating [facility] can transport today around 1400. LLOYD met bedside with pt to update and then parents and friend arrived bedside with pt's clothing and personal belongings and confirmed that they could provide transport today to Acute Rehab around 1400. LLOYD provided the address and contact number to call once they arrive for staff to assist with getting pt into the facility and family and friend will visit pt as well. completed discharge orders and d/c summary and LLOYD faxed to Tommy at [facility] alone with med list to review and confirmed they do not need any additional items. LLOYD provided RN with the number to call report [phone]. Plan: Patient to d/c to [facility] Acute Rehab today around 1400 via parent's vehicle before safe return home. OSCAR Santizo Addendum entered by OSCAR Santizo 10/01/22 11:41: ADD: Call back from Tommy at [facility] Rehab confirming they can accept today and preference for this afternoon around 1400 or 1500. LLOYD met bedside with pt and updated and pt agreeable to begin calling friends/family to get some personal belongings brought to the hospital prior to d/c and will also see if anyone can give her a ride. [employer] bedside and in agreement that pt could go by POV if staff assist getting her in and out of the vehicle. LLOYD called [employer] [facility] and confirmed pt has Medicaid transportation benefits and will attempt to see if a taxi company can provide transport this afternoon for pt and will call back. LLOYD left a msg requesting discharge. BF Original Note: [facility] Acute Rehab planning LLOYD called [facility] Acute rehab and spoke to Donna and inquired if they can accept pt today or this weekend if pt medically stable. Donna states she thinks they could but will need to check with industrial staff nurse to confirm. LLOYD faxed vitals, labs, updated MD note, OT note from yest afternoon and JUN to review. LLOYD confirmed with MD that pt could be medically stable to d/c to Acute Rehab if they can accept today. LLOYD expressed possible barriers with d/c Sun if transport cabulance needed. LLOYD called back to [facility] Donna and updated that pt stable for discharge and requested more urgent final review and discussion with their staff to confirm they can accept. Per PT/OT note, pt has made progress and could safely transport via private vehicle or cabulance. SW met bedside with pt and explained role and updated her that her insurance approved Acute Rehab auth and could potentially be accepted this weekend for today or tomorrow. Pt acknowledges that she is still agreeable with Acute Rehab and somewhat emotional regarding her current residual weakness but shows SW that she has made progress already with some use of her left hand and feet. Pt would like to get some personal clothing items before going to Acute Rehab and thinks her friend or family could picking supervisor some items from her place and that likely she could find someone to provide transport and SW encouraged her to begin working on it now. Plan: SW to follow for final review and confirmation from [facility] Rehab that they can accept today. OSCAR Santizo
--- NOTE | 2022-10-01 11:31 | PT.IPTN ---
Current Diagnoses Cerebral infarction, unspecified (09/26/22) Physical Therapy Treatment Note M2 PT-IP Current Condition Start: 09/27/22 12:10 Freq: NEEDED Status: Discharge Protocol: Document 09/27/22 11:00 AB (Rec: 09/27/22 12:28 AB [id number]) Physical Therapy Current Condition Current Condition Evaluation Date 09/27/22 Treatment Diagnosis R CVA L sided weakness; difficulty in walking Onset Date 09/26/22 M3 PT-IP Subjective Start: 09/27/22 12:10 Freq: NEEDED Status: Discharge Protocol: Document 10/01/22 11:49 TS (Rec: 10/01/22 12:16 TS [id number]) Subjective Physical Therapy Visit Type Type Treatment Note Visit Start Time 11:31 Visit Stop Time 11:45 Total Visit Minutes 14 Number of STATION ATTENDANT Visits 4 Physical Therapy Visit Comments Patient Comments Pt found resting in bed, speaking with SW, agreeable to PT. M4 PT-IP Mobility and Gait Start: 09/27/22 12:10 Freq: NEEDED Status: Discharge Protocol: Document 10/01/22 11:49 TS (Rec: 10/01/22 12:16 TS [id number]) PT-Bed Mobility Assessment Supine to Sit Supine to Sit Contact Guard Assistance Scooting Scooting to Edge of Bed Contact Guard Assistance PT-Transfer Assessment Sit to and From Stand Sit to and from Stand Contact Guard Assistance,1 Person Assistance,Use of Upper Extremities Equipment Transfer Assistive Device None,Gait Belt,Front Wheeled Walker Orthotic/Prosthetic Devices or Brace: No Comments Mobility Comments Supine to sit HOB elevated CGA , provided cues for LUE assist . Sit to stand x1 CGA with BUE support on FWW, provided tacitle cue for increased grasp with LUE on FWW. She ambulated ~175' Giancarlo with FWW, she had LOB x2 requiring ModA for correction of balance. She required cues for heel to toe with L foot during gait and cues for L foot sequencing during turns in FWW. Pt became fatigued and requested back to room. Pt was quick to sit in chair before therapist was ready. She was left in bedside chair with call light nearby, all needs met. Gait Assessment Gait Gait Assistance Required: Minimum Assistance,Moderate Assistance,1 Person Assist Distance (Feet) 175 Assistive Devices Assistive Device Gait Belt,Front Wheeled Walker Orthotic/Prosthetic Devices or Brace: No Gait Deviations General Gait Pattern Decreased Stride Length, Decreased Feet Clearance, Lateral Trunk Lean Factors Limiting Gait Function Factors Limiting Gait Function Decreased Activity Tolerance, Decreased Strength,Difficulty Following Directions, Incoordination,Poor Balance, Poor Safety Awareness Comments Gait Comments See mobility comments. PT-Balance Assessment Sitting Balance and Reactions Static Sitting Balance Ability Good Dynamic Sitting Balance Ability Fair Standing Balance and Reactions Static Standing Balance Ability Fair Dynamic Standing Balance Ability Poor Device Used FWW M5 PT-IP Objective Assessments Start: 09/27/22 12:10 Freq: NEEDED Status: Discharge Protocol: Document 09/27/22 11:00 AB (Rec: 09/27/22 12:28 AB [id number]) Orientation Orientation/Cognition Level of Alertness Alert Orientation Name Safety Awareness Decreased Safety Awareness Memory Description Short Term Impaired Gross Range of Motion Lower Extremity ROM Assessment Within Functional Limits Strength Lower Extremity Strength Assessment Left Impaired Knee 3+/5 Ankle 3+/5 Coordination Assessment Gross Coordination Gross Coordination Impaired M6 PT-IP Treatment Start: 09/27/22 12:10 Freq: NEEDED Status: Discharge Protocol: Document 10/01/22 11:49 TS (Rec: 10/01/22 12:16 TS [id number]) Physical Therapy Treatment Education Education Provided Safety M7 PT-IP Assessment and Plan Start: 09/27/22 12:10 Freq: NEEDED Status: Discharge Protocol: Document 10/01/22 11:49 TS (Rec: 10/01/22 12:16 TS [id number]) PT Summary Assessment and Plan Potential Rehabilitation Potential Good Summary Impairments Strength,Balance,Coordination, Sensation,Activity Tolerance Progress Towards Goals Slow Progress due to Medical Issues Assessment Summary Pt continues to make progress with her mobility. She is CGA for bed mobility and sit to stands. She contineus to require Max cueing for most mobility and for her left sided neglect. She requires tactile cues for grasping of FWW when performing sit to stands. She did progress her gait to 175' Giancarlo with max cueing for step sequencing and cues for L step sequencing during turns with FWW. She did have LOB x2 to her left side requiring ModA to recover. She continues to lean to left side but has shown some improvement in self-cueing to maintian midline. PT is recommending acute rehab at this time to progress gait, strength and coordination before safe return home. Goals Bed Mobility Goal Minimal Assistance Transfer Goal Minimal Assistance,Front Wheeled Walker Gait Goal Minimal Assistance,Front Wheel Walker Gait Distance 25 Other Goals improve bed mobility, transfers using FWW and ambulation using FWW SBA 100 ft up/down 2 steps B rail CGA Days to Meet Goals 10 Frequency of Treatment Frequency Of Treatment Once a Day Treatment Plan Physical Therapy Treatment Plan Bed Mobility Training,Transfer Training,Gait Training, Therapeutic Exercise,Balance Retraining,Discharge Planning, Hot or Cold Pack,Neuromuscular Re-ed,Coordination Retraining ,Manual Therapy Precautions Other Precautions falls Recommendations To Nursing Amount of Assist Needed 1 Person Assist Discharge Recommendations PT Discharge Recommendations Acute Rehab Transportation Needs at Discharge Wheelchair/Cabulance
--- NOTE | 2022-10-01 12:12 | P.DS_ITS ---
History of Present Illness History of Present Illness Chief complaint: left side doesn't work,started last night Narrative: Per history and physical: Pt is 62 yo female with alcohol dependency, frequent falls presents with c/o left side weakness since yesterday evening. Pt states she was sitting at dining table and noticed sudden onset of left side weakness. However, she decided not to seek medical attention and instead somehow got herself to bed. Following morning her friend checked in on her, was alarmed, and brought her to ED (pt wouldn't allow friend to call 911). On arrival pt noted to have left hemip aresis, NIH 7. Her head CT was negative except left maxillary opacification, CTA was normal. EKG NSR, poss old septal AL. Pt denies facial droop and speech difficulty. Her blood alcohol level was 163. Her friend states pt's last drink was this morning. Pt states she a couple of drinks a day and has never been in withdrawal. Also states she smokes 1/2 ppd. Not on any meds. Friend also states that pt has been weak and falling a lot over the past 6 months which they've attributed to alcohol intake. By the time I saw pt in ED her left side weakness was much improved from earlier this morning. Discharge Providers Provider Date of admission: 09/26/22 12:24 Discharge Date: 10/01/22 Primary care physician: Doctor Thiago MD Consults: 09/26/22 13:44 Consult to Occupational Therapy Evaluate & Treat Comment: Physician Instructions: Evaluate and treat Consult to Physical Therapy Evaluate & Treat Comment: Physician Instructions: Evaluate and Treat 09/29/22 10:23 Consult to Speech Therapy Evaluate & Treat Comment: Physician Instructions: Evaluate and treat Discharge provider: Stormy Rodriguez MD Summary Hospital Course Discharge Diagnosis: 1. Subacute right orta radiata infarct with left-sided weakness 2. Alcohol dependence with intoxication on admission 3. Tobacco dependence 4. Leukopenia and macrocytic anemia, felt to be secondary to marrow suppression from alcohol 5. Hypokalemia, resolved 6. Hypomagnesemia, resolved Hospital Course: Patient was admitted with left-sided weakness that started the day prior to admission. Echocardiogram was within normal limits, no PFO. No evidence of atrial fibrillation. Lipid panel revealed an LDL of 10, therefore she was changed from high-intensity statin therapy to moderate intensity statin therapy. PT and OT evaluations were done with recommendation for acute inpatient rehab. Although she had evidence of alcohol intoxication on admission, she did not have any evidence of alcohol withdrawal during her hospitalization. On the date of discharge, patient was accepted to inpatient rehab, insurance authorization had been obtained. She was in stable condition. Status at Discharge Cognitive/behavioral status at discharge: at baseline, oriented Functional status at discharge: uses cane/walker Overall status at discharge: patient is not back to baseline Time Spent with Patient Time spent: Less than 30 minutes Exam Vital Signs (past 8 hours): - 10/01/22 09:31 10/01/22 09:46 10/01/22 07:00 Temperature 98.7 F Pulse Rate 82 82 Respiratory Rate 20 Blood Pressure 137/87 137/87 Pulse Oximetry 99 Oxygen Delivery Method Room Air Oxygen Delivery Method Room Air Oxygen Flow Rate 0 Narrative Exam Narrative: See today's progress note for exam Objective Labs 09/30/22 06:06 09/30/22 06:06 [facility] Medical History (Updated 09/26/22 @ 13:54 by Ted Thomas MD) Alcohol dependence Social History household members: none Smoking Status: Current every day smoker alcohol intake: current Discharge Plan Discharge Plan Patient Disposition: er Inpatient Rehab Other facility: [facility] inpatient rehab Provider Discharge Comment: You were admitted with an acute stroke. Your discharging on aspirin 81 mg daily and atorvastatin 40 mg daily. He will also be taking losartan for blood pressure control. He will remain on Plavix for a total of 3 weeks, the last dose of which will be given on October 16. Please continue to use a walker with ambulation and assist from staff. Continue nicotine patch. Recommend you discontinue smoking and reduce your alcohol cons umption. Discharge orders & Medications Discharge Orders: Discharge (Order); Ordered 10/01/22 Ordered By: Stormy Rodriguez Prescriptions: New multivitamin with folic acid [Tab-A-Ana] 400 mcg Tablet 1 tab PO DAILY Qty: 30 0RF nicotine 21 mg/24 hr Patch 24 Hour 21 mg topical DAILY PRN (Reason: nicotine withdrawal) 7 Days Qty: 7 0RF atorvastatin 20 mg Tablet 40 mg PO BEDTIME Qty: 30 0RF clopidogrel 75 mg Tablet 75 mg PO DAILY Qty: 16 0RF Rx Instructions: Continue x 16 days, last dose 7/17/23 acetaminophen 325 mg Tablet 650 mg PO Q6H PRN (Reason: Fever/Mild Pain (1-3)) Qty: 30 0RF aspirin 81 mg Tablet,Delayed Release (Dr/Ec) 81 mg PO DAILY Qty: 30 0RF thiamine mononitrate (vit B1) 100 mg Tablet 100 mg PO DAILY Qty: 30 0RF folic acid 1 mg Tablet 1 mg PO DAILY Qty: 30 0RF losartan 25 mg Tablet 25 mg PO DAILY Qty: 30 0RF No Action No Known Home Medications Follow up/Referrals: Miscellaneous,Doctor, MD [Primary Care Provider] - Discharge Health Status Multidrug resistant organism: No MDRO Precautions: [place] Diet/Activity/Treatments Diet: Regular Liquid consistency: Normal/Thin Food texture: Regular Activity: Ambulate w/walker w/assist; advance per PT/OT recommendations Oxygen: N/A Special Rehabilitation Services Reason for rehabilitation: Post-operative therapy Rehab type: Physical therapy and Occupational therapy Discharge Data Primary Care Provider: Miscellaneous,Doctor Discharges patient from system. Discharge Date/Time: 10/01/22 12:12 Quality VTE Deep Vein Thrombosis/Pulmonary Embolism Present on Admission: No
[2022-10-01 13:24] VITALS: BP 118/85; PULSE 90; RESP 18; TEMP 36.5; O2SAT 99
== END 2022-10-01 13:30 | DRG 45 ==
LOC: ED 11:00 → AC 12:25
PROVIDERS: Internal Medicine; Student in an Organized Health Care Education/Training Program; Admitting Provider Internal Medicine; Emergency Provider Emergency Medicine; Referring Provider Emergency Medicine; Visit Provider Neuromusculoskeletal Medicine, Sports Medicine
DX: I63.89 Other cerebral infarction (principal); R29.707 NIHSS score 7; G81.94 Hemiplegia, unspecified affecting left nondominant side; F10.229 Alcohol dependence with intoxication, unspecified; Y90.6 Blood alcohol level of 120-199 mg/100 ml; F17.210 Nicotine dependence, cigarettes, uncomplicated; R82.71 Bacteriuria; I47.1 Supraventricular tachycardia; E87.6 Hypokalemia; E83.42 Hypomagnesemia; D53.9 Nutritional anemia, unspecified; R29.710 NIHSS score 10; Z20.822 Contact with and (suspected) exposure to COVID-19
CPT/HCPCS: 36415; 70450; 70496; 70498; 70551; 71045; 80048; 80053; 80061; 80320; 81003; 81015; 82550; 82607; 82728; 83540; 83550; 83690; 83735; 84132; 84484; 85025; 85610; 85730; 87077; 87086; 87186; 92523; 93005; 93010; 93306; 97116; 97129; 97130; 97162; 97166; 97530; 97535; 99284; J1650; J2060; J3475; J7050; Q9967